=== PATIENT | female | born 1985 | race Caucasian/White ===

== ENCOUNTER 2020-09-18 15:37 | Inpatient (IN) ==
[2020-09-18] MEDS ORDERED: LIDOCAINE 1% 20 ML VIAL SQ ONE (15:38)
[2020-09-18] MEDS ORDERED: KETOROLAC 60 MG/2 ML VIAL IM ONE (16:48)
[2020-09-18 16:55] LABS: Hematocrit 39.1 % (36.0-48.0); Hemoglobin 13.4 g/dL (12.0-15.0); Mean Cell Volume 87.5 fL (80.0-100.0); Mean Corpuscular HGB Conc 34.3 g/dL (31.0-36.0); Mean Platelet Volume 10.8 fL (7.4-10.4); Platelet Count 197 K/mcL (140-440); RBC 4.47 M/mcL (4.00-5.20); Red Cell Distribution Width 12.9 % (11.5-14.5); WBC 8.1 K/mcL (4.5-11.0)
[2020-09-18 17:22] LABS: Eosinophils % (Manual) 5 % (0-7); Lymphocytes % 43 % (15-49); Monocytes % (Manual) 10 % (1-12); Platelet Estimate NORMAL (Normal); RBC Morphology NORMAL (Normal); Segmented Neutrophils % 42 % (38-78)
--- NOTE | 2020-09-18 18:01 | Emergency Department Note ---
Extremity Problem HPI General Chief complaint: Extremity Problem,Nontraumatic Stated complaint: Left knee issue Time Seen by Provider: 09/18/20 16:01 Source: patient and family Mode of arrival: ambulatory Limitations: no limitations History of Present Illness HPI Narrative: Is a 34-year-old female patient who presents with left knee pain and swelling x24 hours status post left ACL repair complicated by flexion con tracture and sepsis. Patient had her initial procedure with Dr. Juares at [facility]. She developed a significant flexion contracture and underwent 2 additional arthroscopies for lysis of adhesion. She continued to have symptomatic left knee and was seen by [facility] and underwent a knee meniscectomy which she shortly after developed sepsis. She was admitted to ICU for 26 days. The identified bug was Serratia marcescens. Unfortunately, her ICU course was complicated by severe anaphylactic reaction to multiple antibiotics. She now has an infectious disease physician in [place], Dr. Baeza, at [facility] infectious [facility] ([phone]). She reports that approximately 2 weeks ago she developed pain and swelling over the pes anserinus of the left lower extremity. Shortly after that she developed cellulitis that extended down to the foot. She was seen at [facility] and placed on a course of doxycycline. She states that this did not c lear her infection so she went to see a chiropractor who gave her IV silver injections in a localized silver injection to the pes anserine us. She states that her symptoms improved almost immediately after that with resolving cellulitis, but as of last night when she was out taking care of horses she was having ambulatory dysfunction secondary to left knee pain. She states that it throbs. She has tried ibuprofen which is taken the edge off. She is also noticing increasing swelling again to her pes anserinus area. She denies fever/chills/sweats. She has reached out to her infectious disease doctor in [place] and they recommended she be seen in the ER for evaluation. Related Data Allergies Allergy/AdvReac Type Severity Reaction Status Date / Time ceftriaxone [From Rocephin] Allergy Verified 09/18/20 15:43 codeine Allergy Verified 09/18/20 15:43 Ertapenem Allergy Verified 09/18/20 15:43 moxifloxacin [From Avelox] Allergy Verified 09/18/20 15:43 mupirocin [From Bactroban] Allergy Verified 09/18/20 15:43 Penicillins Allergy Verified 09/18/20 15:43 sulfamethoxazole Allergy Verified 09/18/20 15:43 [From Bactrim] trimethoprim [From Bactrim] Allergy Verified 09/18/20 15:43 vancomycin Allergy Verified 09/18/20 15:43 Review of Systems ROS ROS Narrative: Narrative: All systems ED: reviewed and negative except as stated. PFSH Narrative Patient History Narrative: Narrative: Social History Smoking Status: Never smoker Exam Narrative Narrative: General: AOx3, NAD, nontoxic appearing. Pleasant and conversant. HEENT: PERRLA, EOMI, normocephalic. Moist mucous membranes. Normal facies and normal dentition. Respiratory: No respiratory distress. Unlabored breathing. Heart: Regular rate and rhythm, no murmurs/clicks/rubs. Extremities: Warm and well perfused. No edema. DP 2+ bilaterally. No venous stasis. Left knee is warm to the touch. There is no significant joint effusion. No patellar ballottement. The left pes anserinus is swollen, warm to the touch, and erythematous. There is localized soft tissue swelling but no clear pocket of fluctuance. Is not indurated. It is tender to palpation. There is no extending erythema. Neuro: No focal deficits. Cranial nerves II-XII normal. Skin: Warm dry, no rashes or lesions, no cyanosis. Psych: Normal mood and affect Heme/Lymph: No abnormal bruising General Limitations: no limitations Course Course Course Narrative: 34-year-old female with history of septic left knee presents with acute onset left knee pain and erythema Reevaluation(s) Reevaluation #1: Will query for septic OA with CBC, sed rate and CRP Knee aspiration and then fluid for culture, Gram stain and cell count Once results are back we will contact her infectious disease doctor and obtain recommendations for antibiotic therapies. In addition, will plan to call o rthopedics should her cell count result high for potential washout. Reevaluation #2: Fluid cell counts of synovial fluid come back with 82% neutrophils and 43,000 PMNs. I discussed the case with Dr. Joe who agrees that the patient will likely need a knee arthroscopy for washout. Reevaluation #3: Call placed to [facility] infectious disease in [facility] where she is currently a patient of Dr. Griffin. I spoke with the on-call infectious disease physician, Dr. Hernandez ([phone]). She states they have not seen the patient since February 2019 but she confirmed that Serratia was the organism cultured. Given her many allergies to medications and uncertainty as to which of these she had a true reaction to, she recommends avoiding her listed allergies and treating for staph with daptomycin. Should you need to add coverage for gram negatives she recommends aztreonam. Vital Signs Vital signs: Vital Signs Temperature 98.1 F 09/18/20 15:37 Pulse Rate 77 09/18/20 15:37 Respiratory Rate 16 09/18/20 15:37 Blood Pressure 110/63 09/18/20 15:37 Pulse Oximetry (%) 99 09/18/20 15:37 Temperature 98.1 F 09/18/20 15:37 Pulse Rate 62 09/18/20 20:31 Respiratory Rate 16 09/18/20 15:37 Blood Pressure 115/71 09/18/20 20:31 Pulse Oximetry (%) 100 09/18/20 20:31 MDM MDM Narrative Medical decision making narrative: Septic osteoarthritis of the left knee I have spoken with Dr. Joe who will take the patient to surgery tomorrow for an arthroscopy I&D. He would like an MRI of the knee in the morning to rule out abscess. He would also like a 2 view x-ray of the knee which I have ordered. Given her multitude of allergies he has asked the hospitalist service to admit. I have spoken with Dr. Del Angel and he has accepted the patient for admission. Lab Data Result diagrams: 09/18/20 16:22 Labs: Lab Results 09/18/20 09/18/20 09/18/20 Range/Units 16:22 16:22 16:22 WBC 8.1 (4.5-11.0) K/mcL RBC 4.47 (4.00-5.20) M/mcL Hgb 13.4 (12.0-15.0) g/dL Hct 39.1 (36.0-48.0) % MCV 87.5 (80.0-100.0) fL MCH 30.0 (26.0-34.0) pg MCHC 34.3 (31.0-36.0) g/dL RDW 12.9 (11.5-14.5) % Plt Count 197 (140-440) K/mcL MPV 10.8 H (7.4-10.4) fL Seg Neutrophils % 42 (38-78) % Lymphocytes % 43 (15-49) % Monocytes % (Manual) 10 (1-12) % Eosinophils % (Manual) 5 (0-7) % Platelet Estimate Normal (Normal) RBC Morphology Normal (Normal) ESR 8 (0-20) mm/hr C-Reactive Protein 1.80 H (0.03-0.80) mg/dL Fluid Source Fluid Color Fluid Appearance Fluid RBC /cumm Fluid Tot Cell Count Fluid Nucleated Cells /cumm Fluid Neutrophils % Fluid Lymphocytes % Fluid Monocytes % Fluid Eosinophils % Fluid Basophils % Fluid Crystals (None Seen) Synovial Source Synovial Color Synovial Appearance Synovial Tot Cell Ct Synovial Nuc Cells /cumm Synovial Neutrophils (0-25) % Synovial Lymphocytes % Synovial Other Cells % Synovial Total Protein gm/dL Synovial Uric Acid (0.0-6.0) mg/dL 09/18/20 09/18/20 Range/Units 18:45 18:46 WBC (4.5-11.0) K/mcL RBC (4.00-5.20) M/mcL Hgb (12.0-15.0) g/dL Hct (36.0-48.0) % MCV (80.0-100.0) fL MCH (26.0-34.0) pg MCHC (31.0-36.0) g/dL RDW (11.5-14.5) % Plt Count (140-440) K/mcL MPV (7.4-10.4) fL Seg Neutrophils % (38-78) % Lymphocytes % (15-49) % Monocytes % (Manual) (1-12) % Eosinophils % (Manual) (0-7) % Platelet Estimate (Normal) RBC Morphology (Normal) ESR (0-20) mm/hr C-Reactive Protein (0.03-0.80) mg/dL Fluid Source Fluid Color Red Fluid Appearance Hazy Fluid RBC <50,000 /cumm Fluid Tot Cell Count 100 Fluid Nucleated Cells 18 /cumm Fluid Neutrophils 68 % Fluid Lymphocytes 17 % Fluid Monocytes 11 % Fluid Eosinophils 3 % Fluid Basophils 1 % Fluid Crystals None seen (None Seen) Synovial Source Left knee Synovial Color Yellow Synovial Appearance Turbid Synovial Tot Cell Ct 100 Synovial Nuc Cells 80930 /cumm Synovial Neutrophils 82 H (0-25) % Synovial Lymphocytes 13 % Synovial Other Cells 5 % Synovial Total Protein 3.5 gm/dL Synovial Uric Acid 1.7 (0.0-6.0) mg/dL Discharge Plan Patient/Caregiver Discharge Instructions Pt seen by [employer]/PA only: Yes Patient Disposition: Xfer As Inpt ([facility]) Follow up with: Sepideh Pires PA-C [Primary Care Provider] -
--- NOTE | 2020-09-18 18:39 | XRay Report ---
INDICATION: for knee joint aspiration TECHNIQUE: Informed consent was obtained. Rediscussed the procedure as well as potential risks and complications including risk of hemorrhage and infection. Routine ChloraPrep skin cleansing. 1% lidocaine injected subcutaneously and deep. A medial approach was used. An 18-gauge straight needle was placed within the left knee joint space. 10 mL synovial fluid was removed. This fluid appeared somewhat cloudy. This was placed in a specimen container and delivered to the emergency room. There is an area of erythema and swelling overlying the anteromedial tibia. An 18-gauge straight needle was utilized. Aspiration of a small amount of bloody fluid performed. This was also placed in a specimen vial and delivered to the emergency room. 13 seconds fluoroscopy utilized. A single spot film was obtained IMPRESSION: 1. Percutaneous aspiration of the left knee joint. 10 mL synovial fluid was removed 2. Aspiration of an area of erythema and soft tissue swelling overlying the anteromedial left tibia. A small amount of bloody fluid was removed Interpreted and Authenticated by: Faizan Corona 09/18/20
[2020-09-18 19:31] LABS: Crystals,Body Fluid None Seen (None Seen)
[2020-09-18 20:01] LABS: Appearance,Synovial Fluid Turbid; Color,Synovial Fluid Yellow; Lymphocytes,Synovial Fluid 13 %; Neutrophils,Synovial Fluid 82 % (0-25); Nucleated Cells,Synovial Fld 43193 /cumm; Other Cells,Synovial Fluid 5 %
[2020-09-18 20:06] LABS: Uric Acid,Synovial Fluid 1.7 mg/dL (0.0-6.0)
[2020-09-18 20:06] LABS: Appearance, Body Fluid Hazy; Color, Body Fluid Red; Nucleated Cells,Body Fld 18 /cumm; RBC, Body Fluid <50,000 /cumm; Total Cell Count Body Fld 100
--- NOTE | 2020-09-18 21:52 | Internal Med History&Physical ---
HPI History of Present Illness Patient information: Note initiated : 09/18/20 at 9:50 pm Service Date, if different from initiated Date: [] Patient: Snow Hampton a 34 y/o F admitted on for Left knee issue. Chief Complaint: [] History of present illness: Ms. Hampton is a 34 year old F Who presents the ED with right knee pain and swelling. She has had a complicated surgery since an ACL repair in 2019 which resulted infections and washouts and subsequent ICU stay down in [place]. See your provider's note. Recently she was out take care of her horses and she came back and her not knee was increasingly red and swollen. No fevers chills. In the ED she did not have any fevers a white blood cell count that was elevated per the patient last time she went septic she did not have any inflammatory markers as well. Case discussed with infectious disease ID in [place] as well as Dr. Joe orthopedic surgery. Patient will likely need a washout. She has severe allergies to many. Antibiotics. ID physician recommended daptomycin and aztreonam if needed for gram-negative. Review of Systems: Pertinent positives as above. Remaining 10 point review of system reviewed negative denies headache/fever/chills/nausea/vomiting/chest or abdominal gavin n/cough/dyspnea/diarrhea. Otherwise see above. MEDS/ALLERGIES Home Medications and Allergies Allergies Allergy/AdvReac Type Severity Reaction Status Date / Time ceftriaxone [From Rocephin] Allergy Verified 09/18/20 15:43 codeine Allergy Verified 09/18/20 15:43 Ertapenem Allergy Verified 09/18/20 15:43 moxifloxacin [From Avelox] Allergy Verified 09/18/20 15:43 mupirocin [From Bactroban] Allergy Verified 09/18/20 15:43 Penicillins Allergy Verified 09/18/20 15:43 sulfamethoxazole Allergy Verified 09/18/20 15:43 [From Bactrim] trimethoprim [From Bactrim] Allergy Verified 09/18/20 15:43 vancomycin Allergy Verified 09/18/20 15:43 EXAM Constitutional Vitals: Temp Pulse Resp BP Pulse Ox 98.1 F 62 16 115/71 100 09/18/20 15:37 09/18/20 20:31 09/18/20 15:37 09/18/20 20:31 09/18/20 20:31 Exam: General: Alert, Awake, No acute Distress Eyes/N/T: EOMI, PERRL, MM Head/Neck: neck supple, normocephalic atraumatic CV: RRR, No murmurs, normal s1/s2 Pulm: Clear b/l, no wheezing/rhonchi/rales Abd: soft, nontender, +BS x4 Ext: no clubbing/cyanosis. LEft knee red/tender Neuro: Alert, no focal deficits, moves all extremities, CN 2-12 grossly intact, symmetrical strength b/l upper/lower, sensations intact b/l upper/lower Skin: warm/dry DATA Data Completed and Pending Labs: Labs from last 24 hours 09/18/20 09/18/20 09/18/20 18:46 18:45 16:22 WBC RBC Hgb Hct MCV MCH MCHC RDW Plt Count MPV Seg Neutrophils % Lymphocytes % Monocytes % (Manual) Eosinophils % (Manual) Platelet Estimate RBC Morphology ESR C-Reactive Protein 1.80 H Fluid Source Fluid Color Red Fluid Appearance Hazy Fluid RBC <50,000 Fluid Tot Cell Count 100 Fluid Nucleated Cells 18 Fluid Neutrophils 68 Fluid Lymphocytes 17 Fluid Monocytes 11 Fluid Eosinophils 3 Fluid Basophils 1 Fluid Crystals None seen Synovial Source Left knee Synovial Color Yellow Synovial Appearance Turbid Synovial Tot Cell Ct 100 Synovial Nuc Cells 84907 Synovial Neutrophils 82 H Synovial Lymphocytes 13 Synovial Other Cells 5 Synovial Total Protein 3.5 Synovial Uric Acid 1.7 09/18/20 09/18/20 16:22 16:22 WBC 8.1 RBC 4.47 Hgb 13.4 Hct 39.1 MCV 87.5 MCH 30.0 MCHC 34.3 RDW 12.9 Plt Count 197 MPV 10.8 H Seg Neutrophils % 42 Lymphocytes % 43 Monocytes % (Manual) 10 Eosinophils % (Manual) 5 Platelet Estimate Normal RBC Morphology Normal ESR 8 C-Reactive Protein Fluid Source Fluid Color Fluid Appearance Fluid RBC Fluid Tot Cell Count Fluid Nucleated Cells Fluid Neutrophils Fluid Lymphocytes Fluid Monocytes Fluid Eosinophils Fluid Basophils Fluid Crystals Synovial Source Synovial Color Synovial Appearance Synovial Tot Cell Ct Synovial Nuc Cells Synovial Neutrophils Synovial Lymphocytes Synovial Other Cells Synovial Total Protein Synovial Uric Acid Preliminary micro results at discharge 09/18/20 19:44 Gram Stain - Preliminary Aspirate - Knee 09/18/20 19:27 Gram Stain - Preliminary Aspirate - Left Leg A/P Narrative A/P Narrative: A: *Left septic knee (complicated history with multiple infections and washouts): -Arthrocentesis (09/18) *Depression: P: -Case discussed with ID physician in [place] and recommended daptomycin given the many allergies listed. Aztreonam if needed for gram-negative coverage -pending cx's -Dr Joe for orthopedic surgery -MRI in the morning per Ortho -pt would like to establish with DR. Garcia -ppx: RLE SCD / ambulation. post-op per ortho Time Spent With Patient Time: Total time spent is greater than 50% in coordination of care (as documented) at patient's floor/unit and/or counseling patient:
[2020-09-19] MEDS: CITALOPRAM 20 MG TABLET PO SCH ×2 (01:18→20:16)
[2020-09-19] MEDS ORDERED: POTASSIUM CHLORIDE 40 MEQ in DEXTROSE 5% IN WATER 500 ML IV PRN (02:57)
[2020-09-19] MEDS ORDERED: MAGNESIUM SULFATE 2 GM/50 ML BAG IV PRN (02:57)
[2020-09-19] MEDS ORDERED: POTASSIUM CHLORIDE 20 MEQ TABLET PO PRN ×2 (02:57)
[2020-09-19] MEDS ORDERED: HYDROcodone/APAP 5/325MG TABLET PO PRN (02:57)
[2020-09-19] MEDS ORDERED: SENNOSIDES 1 TABLET PO PRN (02:57)
[2020-09-19] MEDS ORDERED: POLYETHYLENE GLYCOL 3350 17 GM PACKET PO PRN (02:57)
[2020-09-19] MEDS ORDERED: ONDANSETRON 4 MG/2 ML VIAL IV PRN (02:57)
[2020-09-19] MEDS: ACETAMINOPHEN 325 MG TABLET PO PRN ×2 (03:12→21:54)
[2020-09-19] MEDS ORDERED: ACETAMINOPHEN 325 MG TABLET PO ONE (03:13)
[2020-09-19] MEDS: DAPTOmycin 500 MG VIAL IV SCH ×2 (04:07→17:33)
[2020-09-19] MEDS: 0.9 % SODIUM CHLORIDE 10 ML SYRINGE IV SCH ×6 (04:08→20:27)
[2020-09-19 04:17] LABS: Hemoglobin 12.8 g/dL (12.0-15.0); Mean Corpuscular HGB Conc 33.7 g/dL (31.0-36.0); Platelet Count 185 K/mcL (140-440); RBC 4.32 M/mcL (4.00-5.20); Red Cell Distribution Width 12.9 % (11.5-14.5); WBC 6.4 K/mcL (4.5-11.0)
[2020-09-19 04:37] LABS: ALT/SGPT 19 U/L (<40); AST/SGOT 18 U/L (<32); Albumin/Globulin Ratio 1.5 (1.0-2.3); Alkaline Phosphatase 45 U/L (39-117); Bilirubin,Direct < 0.2 mg/dL (0-0.3); Bilirubin,Total 0.2 mg/dL (0.1-1.0); Blood Urea Nitrogen 13 mg/dL (6-20); Calcium 8.4 mg/dL (8.6-10.4); Carbon Dioxide 26 mmol/L (22-30); Chloride 103 mmol/L (96-108); Globulin 2.7 gm/dL (2.2-3.7); Glomerular Filtration Rate 82; Glucose 102 mg/dL (70-105); Lactate Dehydrogenase 173 U/L (135-225); Triglycerides 106 mg/dL (<150); Uric Acid 3.6 mg/dL (2.5-8.0)
[2020-09-19] MEDS ORDERED: DEXTROSE 5%-1/2NS W/20MEQ KCL 1,000 ML IV SCH (07:15)
[2020-09-19 07:40] LABS: Eosinophils % (Manual) 7 % (0-7); Lymphocytes % 63 % (15-49); Monocytes % (Manual) 4 % (1-12); Platelet Estimate NORMAL (Normal); RBC Morphology NORMAL (Normal); Segmented Neutrophils % 26 % (38-78)
[2020-09-19] MEDS ORDERED: GADOBENATE DIMEGLUMINE 15 ML/VIAL IV ONE (07:51)
--- NOTE | 2020-09-19 07:59 | Internal Med Progress Note ---
SUBJECTIVE Subjective Patient information: Note initiated : 09/19/20 at 7:58 am Service Date, if different from initiated Date: [] Patient: Snow Hampton a 34 y/o F admitted on 09/18/20 for Left knee issue. Chief Complaint: [] Interval history: History of present illness: Ms. Hampton is a 34 year old F Who presents the ED with right knee pain and swelling. She has had a complicated surgery since an ACL repair in 2019 which resulted infections and w ashouts and subsequent ICU stay down in [place]. See your provider's note. Recently she was out take care of her horses and she came back and her not knee was increasingly red and swollen. No fevers chills. In the ED she did not have any fevers a white blood cell count that was elevated per the patient last time she went septic she did not have any inflammatory markers as well. Case discussed with infectious disease ID in [place] as well as Dr. Joe orthopedic surgery. Patient will likely need a washout. She has severe allergies to many. Antibiotics. ID physician recommended daptomycin and aztreonam if needed for gram-negative. 09/19 Poor sleep but otherwise no complaints. Awaiting MRI. Review of Systems: denies headache/fever/chills/nausea/vomiting/chest or abdominal pain/cough/d yspnea/diarrhea. Otherwise see above. Constitutional Vitals: Vital Signs Temp Pulse Resp BP Pulse Ox 98.1 F 60 16 91/55 99 09/19/20 03:41 09/19/20 03:41 09/19/20 03:41 09/19/20 03:41 09/19/20 03:41 Period Temp Pulse Resp BP Sys/Waldron Pulse Ox Last 24 Hr 98.1 F-98.2 F 57-77 16-16 91-134/51-88 97-100 Intake and Output 09/18/20 09/19/20 09/19/20 21:59 05:59 13:59 Intake Total 300 Balance 300 Weight 63.503 kg 66.678 kg Intake & Output: Intake & Output 09/18/20 09/19/20 09/19/20 21:59 05:59 13:59 Intake Total 300 Balance 300 Weight 63.503 kg 66.678 kg Intake: Oral 300 Exam: General: Alert, Awake, No acute Distress Eyes/N/T: EOMI, Head/Neck: neck supple, CV: RRR, No murmurs, Pulm: Clear b/l, no wheezing/rhonchi/rales Abd: soft, nontender, +BS x4 Ext: no clubbing/cyanosis. LEft knee red/tender Neuro: Alert, no focal deficits, moves all extremities, Skin: warm/dry OBJ DATA Labs CBC & Chem 7: 09/19/20 03:21 09/19/20 03:21 Labs: Abnormal Lab Results 09/19/20 09/19/20 09/19/20 03:21 03:21 03:21 MPV 11.0 H Seg Neutrophils % 26 L Lymphocytes % 63 H Calcium 8.4 L C-Reactive Protein 2.90 H Synovial Neutrophils 09/18/20 09/18/20 09/18/20 18:45 16:22 16:22 MPV 10.8 H Seg Neutrophils % Lymphocytes % Calcium C-Reactive Protein 1.80 H Synovial Neutrophils 82 H Meds: Medications Acetaminophen (Acetaminophen 325 Mg Tablet) 650 mg PO Q6HP PRN PRN Reason: PAIN/FEVER > 101 Last Admin: 09/19/20 03:12 Dose: 650 mg Documented by: Hydrocodone Bitart/Acetaminophen (Hydrocodone/Apap 5/325mg Tablet) 1 tab PO Q4HP PRN PRN Reason: PAIN LEVEL 3-6 Citalopram Hydrobromide (Citalopram 20 Mg Tablet) 30 mg PO HS JOAQUIN Last Admin: 09/19/20 01:18 Dose: 30 mg Documented by: Daptomycin (Daptomycin 500 Mg Vial) 380 mg 6 mg/kg (380 mg) IV Q24H JOAQUIN; Protocol Last Admin: 09/19/20 04:07 Dose: 380 mg Documented by: Docusate Sodium (Docusate Sodium 100 Mg Capsule) 100 mg PO BID [facility] Potassium Chloride 40 meq/ (Dextrose) 520 mls @ 130 mls/hr IV UD PRN PRN Reason: Potassium < 3 Magnesium Sulfate (Magnesium Sulfate) 2 gm in 50 mls @ 50 mls/hr IV UD PRN PRN Reason: Magnesium </= 1.6 Potassium Chloride/Dextrose/Sod Cl (Dextrose 5%-1/2ns W/20meq Kcl) 1,000 mls @ 100 mls/hr IV .Q10H JOAQUIN Morphine Sulfate (Morphine 4 Mg/Ml Vial) 0 mg IV Q3HP PRN PRN Reason: Pain Ondansetron HCl (Ondansetron 4 Mg/2 Ml Vial) 4 mg IV Q4HP PRN PRN Reason: Nausea And Vomiting Polyethylene Glycol (Polyethylene Glycol 3350 17 Gm Packet) 17 gm PO DAILYP PRN PRN Reason: Constipation Potassium Chloride (Potassium Chloride 20 Meq Tablet) 40 meq PO UD PRN PRN Reason: Potssium is 3-3.5 Potassium Chloride (Potassium Chloride 20 Meq Tablet) 40 meq PO UD PRN PRN Reason: Potassium < 3 Senna (Sennosides 1 Tablet) 2 tab PO DAILYP PRN PRN Reason: Constipation Sodium Chloride (0.9 % Sodium Chloride 10 Ml Syringe) 10 ml IV Q8 [facility] Last Admin: 09/19/20 04:35 Dose: Not Given Documented by: A/P Narrative A/P Narrative: A: *Left septic knee (complicated history with multiple infections and washouts): -Arthrocentesis (09/18) *Depression: P: -Case discussed with ID physician in [place] and recommended daptomycin given the many allergies listed. Aztreonam if needed for gram-negative coverage -pending cx's -Dr Joe for orthopedic surgery -MRI per Ortho -pt would like to establish with Dr.. Garcia -ppx: RLE SCD / ambulation. post-op per ortho Time Spent With Patient Time: Total time spent is greater than 50% in coordination of care (as documented) at patient's floor/unit and/or counseling patient: QUALITY VTE Deep Vein Thrombosis/Pulmonary Embolism Present on Admission: No
--- NOTE | 2020-09-19 08:35 | XRay Report ---
INDICATION: a/p lateral- knee pain, infection TECHNIQUE: AP, oblique, lateral left knee COMPARISON: None FINDINGS: Skeletal: Previous left anterior cruciate ligament repair. Degenerative joint disease with mild narrowing of the left patellofemoral joint. No acute fracture. No cortical destruction. No plain film evidence for bone infection Joint spaces: Narrowing of the patellofemoral joint consistent with degenerative joint disease Suprapatellar recess, periarticular soft tissues: Findings consistent with small suprapatellar joint effusion IMPRESSION: 1. Previous anterior cruciate ligament repair 2. Findings consistent with small suprapatellar joint effusion 3. Mild degenerative narrowing of the patellofemoral joint 4. No cortical destruction or plain film evidence for osteomyelitis Interpreted and Authenticated by: Faizan Corona 09/19/20
--- NOTE | 2020-09-19 08:36 | Magnetic Resonance Report ---
INDICATION: R/o Ostso vs abcess. History of anterior cruciate ligament repair in 2019. Postoperative course was complicated by infection and persistent pain COMPARISON: Plain film examination dated 09/19/2020 TECHNIQUE: Pre and postcontrast knee MRI scan. 15 mL MultiHance injected. Sagittal T1 FSE, T2 FS FRFSE, PD FS FSE. Coronal T2 FS FRFSE, PD FS FSE. Axial T2 FS FRFSE. FINDINGS: Medial collateral ligament complex:No partial or full-thickness tear. No fluid or edema. Superficial and deep components are intact. Normal meniscal femoral fibers and meniscotibial fibers. Fibular collateral ligament, biceps femoris tendon, iliotibial band:Negative. No partial or full-thickness tear Popliteus tendon and popliteofibular ligament, posterolateral corner:Normal. No posterolateral corner injury. Meniscal root attachment:Normal. Medial and lateral compartment articular cartilage:No full-thickness cartilage defect Bone marrow signal: There is bone marrow edema within the proximal tibia. This is a nonspecific finding in a postoperative patient. There is contrast enhancement within the proximal tibia. Osteomyelitis is not excluded although overlying cortex appears intact. Medial meniscus:Posterior horn of the medial meniscus is abnormal with truncation and mild signal. Signal communicated to the inferior articular surface. Clinical correlation is necessary for history of partial meniscectomy. In the absence of surgical history this appearance is consistent with a tear. Lateral meniscus:Normal anterior horn, body, posterior horn. No lateral meniscal tear. Anterior cruciate ligament:Previous anterior cruciate ligament replacement. There is susceptibility related to femoral and tibial endobuttons. The replaced tendon is somewhat difficult to evaluate but appears to be intact without recurrent tear. Posterior cruciate ligament:Negative Proximal tibiofibular joint:Negative. No focal fluid collection Popliteal hiatus, superior and inferior popliteal meniscal fascicles:Negative. Quadriceps tendon: Negative. No partial or full-thickness tear. No focal signal abnormality Patella ligament:Negative. No partial or full-thickness tear. No signal abnormality. No evidence for jumper's knee Joint fluid:There is a small joint effusion. This appears homogeneous without gas bubbles or loose body. There is generalized synovial enhancement which is nonspecific. No focal synovial mass. Synovial enhancement is smooth and homogeneous Hoffa's fat pad:Normal Periarticular soft tissues:Popliteal space is negative. No significant popliteal cyst. No prepatellar soft tissue fluid collection. There is a small fluid collection with mural and surrounding soft tissue enhancement. This measures 15 x 8 x 16 mm. This may be a small abscess. This is contiguous with the tibial endobutton. Patellar position and morphology:Patella is tilted laterally. Tibial tubercle to trochlear groove measures 15 mm. This is at the upper limits of normal and may predispose to patellar subluxation Patella cartilage:5 mm abnormality in the patellar cartilage just lateral to midline. Appearance is consistent with chondromalacia Trochlear cartilage:Negative. No full-thickness cartilage defect. Normal tibial tubercle to the trochlear groove Medial retinaculum and medial patellofemoral ligament:MPFL is intact without tear Lateral retinaculum: Negative IMPRESSION: 1. Previous anterior cruciate ligament surgery. Replaced ligament appears intact 2. Abnormal posterior horn medial meniscus consistent with tear. Clinical correlation for previous partial meniscectomy recommended 3. Bone marrow edema and enhancement within the proximal tibia. No cortical destruction. Findings are nonspecific but osteomyelitis is possible 4. Small joint effusion with generalized homogeneous and thin synovial enhancement 5. Small soft tissue fluid collection which is adjacent to the tibial endobutton. Small abscess is possible 6. Borderline abnormal TTTG 7. Chondromalacia patella Interpreted and Authenticated by: Faizan Corona 09/19/20
--- NOTE | 2020-09-19 10:01 | Consultation ---
DATE OF CONSULTATION: 09/19/2020 DATE OF CONSULTATION: 09/19/2020 REASON FOR CONSULTATION: Left knee septic arthritis. CONSULTING PROVIDER: Jessie. ER PROVIDER: Renetta. HISTORY OF PRESENT ILLNESS: The patient is a 34-year-old female, who has quite extensive history of issues with her left knee. She initially underwent an ACL reconstruction with meniscal repair with subsequent manipulations for flexion contractures in [address] Juares. After that, she had continued pain, and in July or August of this past year, a repeat MRI was completed, demonstrating a meniscus tear with recommendation for debridement. However, at that time, she sought a second opinion in [place] by Dr. Bledsoe with whom she underwent an arthroscopy with meniscal debridement. Appears to have been doing well until approximately 2 weeks after the surgery. She reports that one suture had been left in place and had to be dug out during her clinic visit and subsequently developed an infection. This was around 02/04/2020. She underwent irrigation and debridement at that time with multiple multiple times into February, March timeframe. She had significant allergic reaction to some of the antibiotics, which she had a PICC line for and subsequently was transferred down to [place] where she was in the ICU for several days as well. Since that time, she has had on and off again pain. She has tried to contact Dr. Bledsoe's office on several occasions; however, typically deferred to her primary care and most recently was being treated for a cellulitis over the anterior aspect of the knee with doxycycline as Dr. Bledsoe's office could not get her in at that time. She also has pictures, which demonstrate what appears to be a suture abscess or an abscess after the last irrigation and debridement, which was treated with antibiotics again. Again, this has been over the course of the last 6-7 months and thus she presented to the ER last night here for increasing pain and difficulty with ambulation. She was admitted after a joint aspiration demonstrated greater than 43,000 white cells with greater than 85% neutrophils. The infectious disease in [place] was contacted and recommended aztreonam and daptomycin for antibiotic coverage. Of note, she has been also in treatment in [place] by a chiropractor with ozone injections, which has been injected in her knee as well as over the pes tendons. Has also been receiving IV injections of silver and B12 per patient. PAST MEDICAL HISTORY: None reported. PAST SURGICAL HISTORY: As noted above. ALLERGIES: HAS MULTIPLE ALLERGIES TO CEFTRIAXONE, CODEINE, ERTAPENEM, MOXIFLOXACIN, MUPIROCIN, PENICILLIN, SULFA DRUGS, TRIMETHOPRIM AND VANCOMYCIN. REGULAR MEDICATIONS: None routinely. SOCIAL HISTORY: She does not use tobacco products. REVIEW OF SYSTEMS: Other than the above-mentioned, the 10-point review of systems is negative. PHYSICAL EXAMINATION: GENERAL: She is alert, oriented, answers appropriate. VITAL SIGNS: She is afebrile with a temperature of 98.2, heart rate in the 50s and 60s, blood pressure is one-teens over 60s, saturating near 100% on room air. EXTREMITIES: Examination of her left lower extremity reveals isolated pathology to the left knee. She has a mild joint effusion; however, she can flex and extend from approximately 5-10 degree flexion contracture to greater than 100 degrees flexion with no significant pain outside of her baseline. She does have significant erythema and increased tenderness with palpation over the pes anserine area as well as swelling over this area. Remainder of the foot is warm and well perfused. IMAGING: She has no imaging; however, x-rays and MRI have been ordered. LABORATORY DATA: She has a CRP that is elevated at 2.9. She has a CBC with a white count of 6.4 without a left shift, platelets 185, H and H 12.8 and 38. She had a joint aspirate, which demonstrates 43,000 white cells with 82% being neutrophils. Gram stain was negative for organisms. ASSESSMENT AND PLAN: This is a 34-year-old female with a left knee infection as well as potentially an infected graft with abscess potentially over the pes anserine area. This has been a chronic ongoing issue over the last 7-8 months, treated with multiple washouts, antibiotics and appears to not have resolved. This is now a patient of Dr. Bledsoe, which I will attempt to reach out to next week. However, in the interim, I do think this needs a formal irrigation and debridement. However, the question is why it is not resolving. My recommendation is to obtain an MRI for further evaluation, which was ordered last night; however, not completed due to availability, but supposedly being able to be completed this morning. If not, I would recommend transferring her to a facility that can obtain an MRI as I do think this needs to be washed out. The question is whether the graft and the implant needs to be removed in addition to irrigating and debriding the knee as well. I discussed all those with them today. She is on daptomycin and aztreonam per infectious disease, has been admitted by the hospitalist for now. I will keep her n.p.o. until MRI is complete and likely operative treatment later on today. CANDACE:mauro Job ID: [id number] Doc ID: [id number] Rome Joe MD [facility]
[2020-09-19] MEDS ORDERED: SCOPOLAMINE 1 PATCH PATCH TOPICAL ONE (10:22)
[2020-09-19] MEDS: DOCUSATE SODIUM 100 MG CAPSULE PO SCH ×2 (10:38→20:16)
[2020-09-19] MEDS ORDERED: DEXAMETHASONE 10 MG/ML VIAL ONE (11:00)
[2020-09-19] MEDS ORDERED: HYDROmorphone 1 MG/ML SYRINGE ONE (11:00)
[2020-09-19] MEDS ORDERED: fentaNYL 100 MCG/2 ML VIAL IV ONE (11:00)
[2020-09-19] MEDS ORDERED: MIDAZOLAM 5 MG/5 ML VIAL ONE (11:00)
[2020-09-19] MEDS ORDERED: ONDANSETRON 4 MG/2 ML VIAL ONE (11:00)
[2020-09-19] MEDS ORDERED: KETAMINE 50 MG/ML Syringe (ANEST) ONE (11:00)
[2020-09-19] MEDS ORDERED: PHENYLephrine 1 MG/10 ML SYRINGE (ANEST) ONE (11:00)
[2020-09-19] MEDS ORDERED: GLYCOPYRROLATE 0.2 MG/ML VIAL IV ONE (11:00)
[2020-09-19] MEDS ORDERED: LIDOCAINE HCL/PF 100 MG/5 ML SYRINGE IV ONE (11:00)
[2020-09-19] MEDS ORDERED: PROPOFOL 200 MG/20 ML VIAL IV ONE (11:00)
[2020-09-19] MEDS ORDERED: MAGNESIUM SULFATE 2 GM/50 ML BAG IV ONE (11:00)
[2020-09-19] MEDS ORDERED: LACTATED RINGERS 250 ML IV PRN (11:12)
[2020-09-19] MEDS ORDERED: IPRATROPIUM/ALBUTEROL 3 ML AMPUL.NEB NEB PRN (11:12)
[2020-09-19] MEDS ORDERED: fentaNYL 100 MCG/2 ML VIAL IV PRN (11:12)
[2020-09-19] MEDS ORDERED: LABETALOL 5 MG/ML ML IV PRN (11:12)
[2020-09-19] MEDS ORDERED: MEPERIDINE 50 MG/ML VIAL IM PRN (11:12)
[2020-09-19] MEDS ORDERED: PROMETHAZINE 25 MG/ML VIAL IM PRN (11:12)
[2020-09-19] MEDS ORDERED: BENZOCAINE/MENTHOL 1 LOZENGE PO PRN (11:12)
[2020-09-19] MEDS ORDERED: FLUMAZENIL 0.1 MG/ML ML IV PRN (11:12)
[2020-09-19] MEDS ORDERED: PROMETHAZINE 25 MG/ML VIAL IV PRN (11:12)
[2020-09-19] MEDS ORDERED: NALOXONE HCL 0.4 MG/ML VIAL IV PRN (11:12)
[2020-09-19] MEDS ORDERED: METOPROLOL TARTRATE 5 MG/5 ML VIAL IV PRN (11:12)
[2020-09-19] MEDS ORDERED: METHOCARBAMOL 1,000 MG/10 ML VIAL IV PRN (11:12)
[2020-09-19] MEDS ORDERED: MEPERIDINE 25 MG/ML VIAL IV PRN (11:12)
[2020-09-19] MEDS ORDERED: ACETAMINOPHEN 1,000 MG/100 ML BAG IV ONE (11:12)
[2020-09-19] MEDS ORDERED: CLINDAMYCIN 900 MG in DEXTROSE 5% IN WATER 50 ML IV ONE (11:14)
[2020-09-19] MEDS ORDERED: LORazepam 2 MG/ML VIAL IV ONE (11:15)
[2020-09-19] MEDS ORDERED: LACTATED RINGERS 1,000 ML IV SCH (11:15)
--- NOTE | 2020-09-19 12:29 | Brief Operative Note ---
Brief Operative Note Date of procedure: 09/19/20 Pre-op diagnosis: left septic knee, tibial osteomyelitis with small abscess over tibial butto Post-op diagnosis: same Procedure: left knee arthroscopic irrigation and debridement, hardware removal, removal of ACL graft Grafts/Implants: No Anesthesia: GETA Findings: purulent abscess at tibial button, intact graft, septic knee Complications: none Surgeon: Rome Joe [employer] Executive Producer: Cesar Kurtz Estimated blood loss (cc): 10 Tourniquet Time (Minutes): 65 Specimens Removed/Pathology: none sent Condition: stable Disposition: PACU
--- NOTE | 2020-09-19 13:28 | XRay Report ---
INDICATION: s/p hardware removal and graft removal, drilling TECHNIQUE: AP and lateral COMPARISON: Preoperative left knee dated 09/19/2020 FINDINGS:There are skin eugenia overlying the anteromedial left tibia. There is been interval removal of replaced left anterior cruciate artery with removal of endobuttons. There is mild intra-articular and periarticular soft tissue gas IMPRESSION: Postsurgical left knee Interpreted and Authenticated by: Faizan Corona 09/19/20
[2020-09-19] MEDS: morphine 4 MG/ML VIAL IV PRN (15:03)
[2020-09-19] MEDS: LACTATED RINGERS 1,000 ML IV SCH (15:07)
[2020-09-19] MEDS: LIDOCAINE PATCH TOPICAL SCH (16:03)
[2020-09-19] MEDS: oxyCODONE/APAP 10/325MG TABLET PO PRN ×3 (16:40→23:59)
[2020-09-20] MEDS: LACTATED RINGERS 1,000 ML IV SCH ×2 (01:08→16:05)
[2020-09-20] MEDS: oxyCODONE/APAP 10/325MG TABLET PO PRN ×5 (04:28→21:28)
[2020-09-20] MEDS: 0.9 % SODIUM CHLORIDE 10 ML SYRINGE IV SCH ×7 (05:49→22:07)
[2020-09-20] MEDS: ACETAMINOPHEN 325 MG TABLET PO PRN ×2 (07:23→16:04)
--- NOTE | 2020-09-20 07:25 | Orthopedic Progress Note ---
SUBJECTIVE Subjective Patient information: Note initiated : 09/20/20 at 7:21 am Service Date, if different from initiated Date: [] Patient: Snow Hampton 34 y/o F admitted on 09/18/20 for Left knee issue. Chief Complaint: [No new complaints overnight. Pain controlled.] Constitutional Vitals: Vital Signs Temp Pulse Resp BP Pulse Ox 98.6 F 52 L 16 85/51 99 09/20/20 07:08 09/20/20 07:08 09/20/20 07:08 09/20/20 07:08 09/20/20 07:08 Period Temp Pulse Resp BP Sys/Waldron Pulse Ox Last 24 Hr 97.3 F-99.7 F 52-76 7-17 83-124/45-83 93-100 Intake and Output 09/19/20 09/20/20 09/20/20 21:59 05:59 13:59 Intake Total 1600 1800 Output Total 450 Balance 1150 1800 Weight 146 lb 8 oz Intake & Output: Intake & Output 09/19/20 09/20/20 09/20/20 21:59 05:59 13:59 Intake Total 1600 1800 Output Total 450 Balance 1150 1800 Weight 146 lb 8 oz Intake: IV 1000 1000 Dextrose 5%-1/2Ns W/20Meq KCl 1 1000 ,000 ml @ 100 mls/hr IV .Q10H [facility] Rx#:[id number] Lactated Ringers 1,000 ml @ 75 1000 mls/hr IV .[id number] [facility] Rx#: [id number] Oral 200 800 GI Tube Flush 400 Output: Void Amount 450 Other: Urine Appearance Clear Urine Color Bright Yellow # Voids 3 Additional findings Additional findings: General: alert and oriented. appropriate -left knee: dressing removed with fair amount of drainage- no purulence noted. Drain in place. stable flexion contracture. foot warm well perfused OBJ DATA Labs CBC & Chem 7: 09/19/20 03:21 09/19/20 03:21 Labs: Abnormal Lab Results 09/19/20 09/19/20 09/19/20 03:21 03:21 03:21 MPV 11.0 H Seg Neutrophils % 26 L Lymphocytes % 63 H Calcium 8.4 L C-Reactive Protein 2.90 H Synovial Neutrophils 09/18/20 09/18/20 09/18/20 18:45 16:22 16:22 MPV 10.8 H Seg Neutrophils % Lymphocytes % Calcium C-Reactive Protein 1.80 H Synovial Neutrophils 82 H Meds: Medications Acetaminophen (Acetaminophen 325 Mg Tablet) 650 mg PO Q6HP PRN PRN Reason: PAIN/FEVER > 101 Last Admin: 09/19/20 21:54 Dose: 650 mg Documented by: Citalopram Hydrobromide (Citalopram 20 Mg Tablet) 30 mg PO HS [facility] Last Admin: 09/19/20 20:16 Dose: 30 mg Documented by: Daptomycin (Daptomycin 500 Mg Vial) 380 mg 6 mg/kg (380 mg) IV Q24H [facility]; Protocol Last Admin: 09/19/20 17:33 Dose: 380 mg Documented by: Docusate Sodium (Docusate Sodium 100 Mg Capsule) 100 mg PO BID [facility] Last Admin: 09/19/20 20:16 Dose: 100 mg Documented by: Enoxaparin Sodium (Enoxaparin 40 Mg/0.4 Ml Syringe) 40 mg SQ DAILY [facility] Potassium Chloride 40 meq/ (Dextrose) 520 mls @ 130 mls/hr IV UD PRN PRN Reason: Potassium < 3 Magnesium Sulfate (Magnesium Sulfate) 2 gm in 50 mls @ 50 mls/hr IV UD PRN PRN Reason: Magnesium </= 1.6 Lactated Ringer's (Lactated Ringers) 1,000 mls @ 75 mls/hr IV .[id number] [facility] Last Infusion: 09/20/20 04:40 Dose: Infused Documented by: Lidocaine (Lidocaine Patch) 1 patch TOPICAL DAILY@1000 [facility] Last Admin: 09/19/20 16:03 Dose: 1 patch Documented by: Morphine Sulfate (Morphine 4 Mg/Ml Vial) 0 mg IV Q3HP PRN PRN Reason: Pain Last Admin: 09/19/20 15:03 Dose: 3 mg Documented by: Ondansetron HCl (Ondansetron 4 Mg/2 Ml Vial) 4 mg IV Q4HP PRN PRN Reason: Nausea And Vomiting Oxycodone/Acetaminophen (Oxycodone/Apap 10/325mg Tablet) 1 - 2 tab PO Q4-6HP PRN; Protocol PRN Reason: Per Pain Protocol Last Admin: 09/20/20 04:28 Dose: 2 tab Documented by: Polyethylene Glycol (Polyethylene Glycol 3350 17 Gm Packet) 17 gm PO DAILYP PRN PRN Reason: Constipation Potassium Chloride (Potassium Chloride 20 Meq Tablet) 40 meq PO UD PRN PRN Reason: Potssium is 3-3.5 Potassium Chloride (Potassium Chloride 20 Meq Tablet) 40 meq PO UD PRN PRN Reason: Potassium < 3 Senna (Sennosides 1 Tablet) 2 tab PO DAILYP PRN PRN Reason: Constipation Sodium Chloride (0.9 % Sodium Chloride 10 Ml Syringe) 10 ml IV Q8 [facility] Last Admin: 09/20/20 05:49 Dose: Not Given Documented by: Sodium Chloride (0.9 % Sodium Chloride 10 Ml Syringe) 10 ml IV Q8 [facility] Last Admin: 09/20/20 05:49 Dose: 10 ml Documented by: A/P Assessment and plan (1) Septic arthritis of knee: Status: Acute Comment: POD 1 s/p left knee arthroscopic irrigation and debridement, ACL graft removal, hardware removal -- continue IV antibiotics per recommendations -----consult ID in the morning -----culture pending -- PT- 50% weight bearing, no restrictions to range of motion -- dressing changed this AM. Possible d/c the pen denisse drain in AM -- regular diet -- Prophy: IS, foot pumps, lovenox, mobilization -- Dispo: pending. Time Spent With Patient Time: Total time spent is greater than 50% in coordination of care (as documented) at patient's floor/unit and/or counseling patient:
--- NOTE | 2020-09-20 09:36 | Internal Med Progress Note ---
SUBJECTIVE Subjective Patient information: Note initiated : 09/20/20 at 9:33 am Service Date, if different from initiated Date: [] Patient: Snow Hampton a 34 y/o F admitted on 09/18/20 for Left knee issue. Chief Complaint: [] Interval history: History of present illness: Ms. Hampton is a 34 year old F Who presents the ED with right knee pain and swelling. She has had a complicated surgery since an ACL repair in 2019 which resulted infections and w ashouts and subsequent ICU stay down in [place]. See your provider's note. Recently she was out take care of her horses and she came back and her not knee was increasingly red and swollen. No fevers chills. In the ED she did not have any fevers a white blood cell count that was elevated per the patient last time she went septic she did not have any inflammatory markers as well. Case discussed with infectious disease ID in [place] as well as Dr. Joe orthopedic surgery. Patient will likely need a washout. She has severe allergies to many. Antibiotics. ID physician recommended daptomycin and aztreonam if needed for gram-negative. 09/19 Poor sleep but otherwise no complaints. Awaiting MRI. 09/20 Patient had washout with removal of hardware and graft yesterday. Awaiting cultures for final antibiotic regimen and discussion with infectious disease. Review of Systems: denies headache/fever/chills/nausea/vomiting/chest or abdominal pain/cough/dyspnea/diarrhea. Otherwise see above. Constitutional Vitals: Vital Signs Temp Pulse Resp BP Pulse Ox 98.6 F 52 L 16 85/51 99 09/20/20 07:08 09/20/20 07:08 09/20/20 07:08 09/20/20 07:08 09/20/20 07:08 Period Temp Pulse Resp BP Sys/Waldron Pulse Ox Last 24 Hr 97.3 F-99.7 F 52-76 7-17 83-124/45-83 93-100 Intake and Output 09/19/20 09/20/20 09/20/20 21:59 05:59 13:59 Intake Total 1600 1800 Output Total 450 Balance 1150 1800 Weight 66.451 kg Intake & Output: Intake & Output 09/19/20 09/20/20 09/20/20 21:59 05:59 13:59 Intake Total 1600 1800 Output Total 450 Balance 1150 1800 Weight 66.451 kg Intake: IV 1000 1000 Dextrose 5%-1/2Ns W/20Meq KCl 1 1000 ,000 ml @ 100 mls/hr IV .Q10H [facility] Rx#:[id number] Lactated Ringers 1,000 ml @ 75 1000 mls/hr IV .[id number] [facility] Rx#: [id number] Oral 200 800 GI Tube Flush 400 Output: Void Amount 450 Other: Urine Appearance Clear Urine Color Bright Yellow # Voids 3 Exam: General: Alert, Awake, No acute Distress Eyes/N/T: EOMI, Head/Neck: neck supple, CV: RRR, No murmurs, Pulm: Clear b/l, no wheezing/rhonchi/rales Abd: soft, nontender, +BS x4 Ext: no clubbing/cyanosis. LEft knee in dressings Neuro: Alert, no focal deficits, moves all extremities, Skin: warm/dry OBJ DATA Labs CBC & Chem 7: 09/19/20 03:21 09/19/20 03:21 Labs: Abnormal Lab Results 09/19/20 09/19/20 09/19/20 03:21 03:21 03:21 MPV 11.0 H Seg Neutrophils % 26 L Lymphocytes % 63 H Calcium 8.4 L C-Reactive Protein 2.90 H Synovial Neutrophils 09/18/20 09/18/20 09/18/20 18:45 16:22 16:22 MPV 10.8 H Seg Neutrophils % Lymphocytes % Calcium C-Reactive Protein 1.80 H Synovial Neutrophils 82 H Meds: Medications Acetaminophen (Acetaminophen 325 Mg Tablet) 650 mg PO Q6HP PRN PRN Reason: PAIN/FEVER > 101 Last Admin: 09/20/20 07:23 Dose: 650 mg Documented by: Citalopram Hydrobromide (Citalopram 20 Mg Tablet) 30 mg PO HS [facility] Last Admin: 09/19/20 20:16 Dose: 30 mg Documented by: Daptomycin (Daptomycin 500 Mg Vial) 380 mg 6 mg/kg (380 mg) IV Q24H [facility]; Protocol Last Admin: 09/19/20 17:33 Dose: 380 mg Documented by: Docusate Sodium (Docusate Sodium 100 Mg Capsule) 100 mg PO BID [facility] Last Admin: 09/19/20 20:16 Dose: 100 mg Documented by: Enoxaparin Sodium (Enoxaparin 40 Mg/0.4 Ml Syringe) 40 mg SQ DAILY [facility] Potassium Chloride 40 meq/ (Dextrose) 520 mls @ 130 mls/hr IV UD PRN PRN Reason: Potassium < 3 Magnesium Sulfate (Magnesium Sulfate) 2 gm in 50 mls @ 50 mls/hr IV UD PRN PRN Reason: Magnesium </= 1.6 Lactated Ringer's (Lactated Ringers) 1,000 mls @ 75 mls/hr IV .[id number] [facility] Last Infusion: 09/20/20 04:40 Dose: Infused Documented by: Lidocaine (Lidocaine Patch) 1 patch TOPICAL DAILY@1000 [facility] Last Admin: 09/19/20 16:03 Dose: 1 patch Documented by: Morphine Sulfate (Morphine 4 Mg/Ml Vial) 0 mg IV Q3HP PRN PRN Reason: Pain Last Admin: 09/19/20 15:03 Dose: 3 mg Documented by: Ondansetron HCl (Ondansetron 4 Mg/2 Ml Vial) 4 mg IV Q4HP PRN PRN Reason: Nausea And Vomiting Oxycodone/Acetaminophen (Oxycodone/Apap 10/325mg Tablet) 1 - 2 tab PO Q4-6HP PRN; Protocol PRN Reason: Per Pain Protocol Last Admin: 09/20/20 04:28 Dose: 2 tab Documented by: Polyethylene Glycol (Polyethylene Glycol 3350 17 Gm Packet) 17 gm PO DAILYP PRN PRN Reason: Constipation Potassium Chloride (Potassium Chloride 20 Meq Tablet) 40 meq PO UD PRN PRN Reason: Potssium is 3-3.5 Potassium Chloride (Potassium Chloride 20 Meq Tablet) 40 meq PO UD PRN PRN Reason: Potassium < 3 Senna (Sennosides 1 Tablet) 2 tab PO DAILYP PRN PRN Reason: Constipation Sodium Chloride (0.9 % Sodium Chloride 10 Ml Syringe) 10 ml IV Q8 [facility] Last Admin: 09/20/20 05:49 Dose: Not Given Documented by: Sodium Chloride (0.9 % Sodium Chloride 10 Ml Syringe) 10 ml IV Q8 [facility] Last Admin: 09/20/20 05:49 Dose: 10 ml Documented by: A/P Narrative A/P Narrative: A: *Left septic knee (complicated history with multiple infections and washouts): s/p washout/hardware removal/graft removal (09/19) -Arthrocentesis (09/18) *Depression: P: -Case discussed with ID physician in [place] and recommended daptomycin given the many allergies listed. Aztreonam if needed for gram-negative coverage -pending cx's -Dr Joe for orthopedic surgery -d/w with Dr. Garcia on monday, will need PICC for long-term abx -ppx: RLE SCD / ambulation. post-op per ortho Time Spent With Patient Time: Total time spent is greater than 50% in coordination of care (as documented) at patient's floor/unit and/or counseling patient: QUALITY VTE Deep Vein Thrombosis/Pulmonary Embolism Present on Admission: No
[2020-09-20] MEDS: DAPTOmycin 500 MG VIAL IV SCH (09:42)
[2020-09-20] MEDS: DOCUSATE SODIUM 100 MG CAPSULE PO SCH ×2 (09:42→21:27)
[2020-09-20] MEDS: ENOXAPARIN 40 MG/0.4 ML SYRINGE SQ SCH (09:43)
[2020-09-20] MEDS: LIDOCAINE PATCH TOPICAL SCH (09:43)
[2020-09-20] MEDS ORDERED: 0.9 % SODIUM CHLORIDE 10 ML SYRINGE IV PRN (16:27)
[2020-09-20] MEDS: CITALOPRAM 20 MG TABLET PO SCH (21:27)
[2020-09-21] MEDS: oxyCODONE/APAP 10/325MG TABLET PO PRN ×6 (01:28→21:44)
[2020-09-21] MEDS: LACTATED RINGERS 1,000 ML IV SCH ×2 (04:49→16:16)
[2020-09-21] MEDS: ACETAMINOPHEN 325 MG TABLET PO PRN ×3 (05:43→19:45)
--- NOTE | 2020-09-21 06:33 | Orthopedic Progress Note ---
SUBJECTIVE Subjective Patient information: Note initiated : 09/21/20 at 6:30 am Service Date, if different from initiated Date: [] Patient: Snow Hampton 34 y/o F admitted on 09/18/20 for Left knee issue. Chief Complaint: [No acute events overnight. pain controlled. ] Constitutional Vitals: Vital Signs Temp Pulse Resp BP Pulse Ox 98.1 F 63 15 92/46 98 09/21/20 01:32 09/21/20 01:32 09/21/20 01:32 09/21/20 01:32 09/21/20 01:32 Period Temp Pulse Resp BP Sys/Waldron Pulse Ox Last 24 Hr 98.1 F-98.6 F 52-63 15-16 85-120/46-68 98-100 Intake and Output 09/20/20 09/21/20 09/21/20 21:59 05:59 13:59 Intake Total 1080 800 Balance 1080 800 Weight 146 lb 8 oz Intake & Output: Intake & Output 09/20/20 09/21/20 09/21/20 21:59 05:59 13:59 Intake Total 1080 800 Balance 1080 800 Weight 146 lb 8 oz Intake: Oral 1080 800 Other: Percent of Meal Consumed 100% # Voids 2 Additional findings Additional findings: General: alert and oriented, appropriate left knee: dressing removed, continue to drain as expected. No erythema, the closed incisions are without drainage. Drainage is sanguinous. Baseline flexion contracture. OBJ DATA Labs CBC & Chem 7: 09/19/20 03:21 09/19/20 03:21 Labs: Abnormal Lab Results 09/19/20 09/19/20 09/19/20 03:21 03:21 03:21 MPV 11.0 H Seg Neutrophils % 26 L Lymphocytes % 63 H Calcium 8.4 L C-Reactive Protein 2.90 H Synovial Neutrophils 09/18/20 09/18/20 09/18/20 18:45 16:22 16:22 MPV 10.8 H Seg Neutrophils % Lymphocytes % Calcium C-Reactive Protein 1.80 H Synovial Neutrophils 82 H Meds: Medications Acetaminophen (Acetaminophen 325 Mg Tablet) 650 mg PO Q6HP PRN PRN Reason: PAIN/FEVER > 101 Last Admin: 09/21/20 05:43 Dose: 650 mg Documented by: Citalopram Hydrobromide (Citalopram 20 Mg Tablet) 30 mg PO HS [facility] Last Admin: 09/20/20 21:27 Dose: 30 mg Documented by: Daptomycin (Daptomycin 500 Mg Vial) 380 mg 6 mg/kg (380 mg) IV Q24H [facility]; Protocol Last Admin: 09/20/20 09:42 Dose: 380 mg Documented by: Docusate Sodium (Docusate Sodium 100 Mg Capsule) 100 mg PO BID [facility] Last Admin: 09/20/20 21:27 Dose: 100 mg Documented by: Enoxaparin Sodium (Enoxaparin 40 Mg/0.4 Ml Syringe) 40 mg SQ DAILY [facility] Last Admin: 09/20/20 09:43 Dose: 40 mg Documented by: Heparin Sodium (Porcine) (Heparin Flush 10 Units/Ml 5 Ml Syringe) 2 ml IV Q12 [facility] Last Admin: 09/20/20 21:57 Dose: Not Given Documented by: Potassium Chloride 40 meq/ (Dextrose) 520 mls @ 130 mls/hr IV UD PRN PRN Reason: Potassium < 3 Magnesium Sulfate (Magnesium Sulfate) 2 gm in 50 mls @ 50 mls/hr IV UD PRN PRN Reason: Magnesium </= 1.6 Lactated Ringer's (Lactated Ringers) 1,000 mls @ 75 mls/hr IV .[id number] [facility] Last Admin: 09/21/20 04:49 Dose: Not Given Documented by: Lidocaine (Lidocaine Patch) 1 patch TOPICAL DAILY@1000 [facility] Last Admin: 09/20/20 09:43 Dose: 1 patch Documented by: Morphine Sulfate (Morphine 4 Mg/Ml Vial) 0 mg IV Q3HP PRN PRN Reason: Pain Last Admin: 09/19/20 15:03 Dose: 3 mg Documented by: Ondansetron HCl (Ondansetron 4 Mg/2 Ml Vial) 4 mg IV Q4HP PRN PRN Reason: Nausea And Vomiting Oxycodone/Acetaminophen (Oxycodone/Apap 10/325mg Tablet) 1 - 2 tab PO Q4-6HP PRN; Protocol PRN Reason: Per Pain Protocol Last Admin: 09/21/20 05:43 Dose: 1 tab Documented by: Polyethylene Glycol (Polyethylene Glycol 3350 17 Gm Packet) 17 gm PO DAILYP PRN PRN Reason: Constipation Potassium Chloride (Potassium Chloride 20 Meq Tablet) 40 meq PO UD PRN PRN Reason: Potssium is 3-3.5 Potassium Chloride (Potassium Chloride 20 Meq Tablet) 40 meq PO UD PRN PRN Reason: Potassium < 3 Senna (Sennosides 1 Tablet) 2 tab PO DAILYP PRN PRN Reason: Constipation Sodium Chloride (0.9 % Sodium Chloride 10 Ml Syringe) 10 ml IV Q8 [facility] Last Admin: 09/20/20 21:31 Dose: 10 ml Documented by: Sodium Chloride (0.9 % Sodium Chloride 10 Ml Syringe) 10 ml IV Q8 [facility] Last Admin: 09/20/20 22:07 Dose: 10 ml Documented by: Sodium Chloride (0.9 % Sodium Chloride 10 Ml Syringe) 10 ml IV UD PRN PRN Reason: FLUSH Sodium Chloride (0.9 % Sodium Chloride 10 Ml Syringe) 10 ml IV Q12 [facility] Last Admin: 09/20/20 19:34 Dose: Not Given Documented by: A/P Assessment and plan (1) Septic arthritis of knee: Status: Acute Comment: POD 2 s/p left knee arthroscopic irrigation and debridement, ACL graft removal, hardware removal -- continue IV antibiotics per recommendations -----ID consult -----culture pending -- PT- 50% weight bearing, no restrictions to range of motion -- dressing changed this AM. [place] drain d/c -- regular diet -- Prophy: IS, foot pumps, lovenox, mobilization -- Dispo: pending. Time Spent With Patient Time: Total time spent is greater than 50% in coordination of care (as documented) at patient's floor/unit and/or counseling patient:
[2020-09-21] MEDS: DAPTOmycin 500 MG VIAL IV SCH (08:45)
[2020-09-21] MEDS: 0.9 % SODIUM CHLORIDE 10 ML SYRINGE IV SCH ×6 (08:45→23:29)
[2020-09-21] MEDS: ENOXAPARIN 40 MG/0.4 ML SYRINGE SQ SCH (08:45)
[2020-09-21] MEDS: DOCUSATE SODIUM 100 MG CAPSULE PO SCH ×2 (08:45→21:45)
--- NOTE | 2020-09-21 09:10 | Operative Note ---
DATE OF OPERATION: 09/19/2020 PREOPERATIVE DIAGNOSES: 1. Left septic knee. 2. 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 3. Left abscess over the proximal tibia. POSTOPERATIVE DIAGNOSES: 1. Left septic knee. 2. 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 Left abscess over the proximal tibia. PROCEDURE PERFORMED: 1. Arthroscopic irrigation and debridement of the left knee infection. 2. Left knee hardware removal. 3. Left knee I and D of abscess and removal of ACL graft. SURGEON: Rome Joe M.D. ACID CORRECTION HAND: Cesar Kurtz PA-C. The PA's assistance was required for the safe and efficient completion of the entire case. This provider's expertise and technical skill were required throughout the case. The PA assisted with preoperative coordination, intraoperative retraction, wound closure, dressing and splint application, as well as postoperative documentation and care coordination. ANESTHESIA: General with peripheral nerve block. INTRAVENOUS FLUIDS: 1 liter lactated Ringer's. ESTIMATED BLOOD LOSS: Minimal. TOURNIQUET TIME: 65 minutes at 250 mmHg. IMPLANTS: None. However, did remove the ACL graft as well as two buttons from an [employer]rex TightRope. ANTIBIOTICS: 900 mg clindamycin. PATHOLOGY/LAB: I did send reamings from the tibial tunnel. INTRAOPERATIVE COMPLICATIONS: None apparent. INDICATIONS FOR PROCEDURE: The patient is a 34-year-old female with a complicated history with the short version being ACL reconstruction with meniscal repair in 2019. Subsequently, had manipulation for flexion contractures. After that had repeat meniscus tear, which she sought a second opinion. Dr. Bledsoe performed a meniscal debridement which subsequently got infected, requiring multiple washouts with IV antibiotics with allergic reactions to multiple antibiotics requiring an ICU stay in [place]. She subsequently has been dealing with this on and off pain, unable to get back to the clinic up in [place] and has been followed by her primary care who has been treating her with antibiotics on and off. She subsequently presented to the emergency department here for increasing pain as well as inability to bear weight without assistive devices. Here, she was found to have edema throughout the proximal tibia as well as what appears to be an abscess over the tibial implant as well as septic knee with a white count of over 43,000 and 85% neutrophils from the knee itself. After discussion of options with her and her , my recommendation was for operative treatment to include irrigation and debridement of the knee along with removal of the implants and the graft given that it appears that the tibial tunnel was involved. I did discuss that we could try to save the tibial graft. However, I do think this is not going to be viable. After discussion, they are okay to proceed in this fashion. DESCRIPTION OF PROCEDURE: Patient was met in the preoperative area where site was verified and marked with the patient's input. She was then taken back to the operating room where she underwent successful anesthesia. Her left lower extremity was placed in a surgical thigh quezada after placing a padded tourniquet and prepped and draped in the usual sterile fashion with ChloraPrep. Surgical timeout was performed to verify patient's identity, correct procedure being performed, and correct extremity being operated on. Everybody was in agreement. Esmarch was utilized to exsanguinate the extremity only up to the calf, not throughout the knee, and tourniquet was inflated to 250 mmHg. I made a small incision over the prior incision lateral to the femur and through the IT band and isolated the button here. This was excised along with the suture. This was then irrigated and IT band was closed with a PDS suture and the skin was closed with 3-0 nylon. At this point, I made our incision directly over the medial face of the tibia where her prior incision was made as well. This was dissected down to the tibial button, which was an ABS button. There was purulent abscess right at this location. This was debrided utilizing a rongeur as well as a sharp knife. The button sutures were then removed from the location. At this point, I made our arthroscopy portals medial and lateral, which were already made horizontal in nature. Upon entering the joint, there was cloudy fluid throughout the joint. A significant amount of scar tissue throughout the anterior knee. No yohan pus, but definitely thicker cloudy synovial fluid. This was irrigated with 9 liters of saline of irrigation through the scope with performing a partial synovectomy. I also did a capsular release on the medial and lateral side as it was significantly scarred in greater than 5 to 6 mm in thickness overall. There was grade 1 chondromalacia of the medial and lateral femoral condyle as well as tibial plateau. The meniscus itself appeared to have healed. No full-thickness chondral defects. The graft itself was intact. The ACL graft was intact but excised. Once this was complete, placed a Beath pin through the tibial tunnel and intra-articular, verified position. Over the top of this, I reamed with a 7 and 8 mm reamer and then looking down to the tunnel all the soft tissue, except for anteriorly was removed. Using a curette, I curetted circumferentially around the tunnel. All the soft tissue graft were removed and this was a bony appearance of the tunnel. Once that was removed, all arthroscopic instruments were removed from the knee. I performed an irrigation with IrriSept as well and then irrigated this out with normal irrigation again. At this point, I closed the periosteum over top of the tibial tunnel as best as I could, along with a deep layer. These were all Monocryl sutures. Skin closed with 3-0 nylon. I placed a [place] drain in the medial portal of the arthroscopy site and left the lateral one open. The lateral incision was already closed at this point. The knee was then cleaned and dried. We placed a Xeroform along with fluffs and a dry dressing in order to absorb the drainage, along with Wilner wrap and a hinged knee brace locked in extension. The patient awoke from anesthesia and was transferred to PACU in stable condition. POSTOPERATIVE PLAN: The patient will be admitted back to the floor where she will continue IV antibiotics. She will have a PICC placed with ID consult on Monday. DLW:[email or web address] Job ID: [id number] Doc ID: [id number] Rome Joe MD [facility]
[2020-09-21] MEDS: LIDOCAINE PATCH TOPICAL SCH (10:07)
[2020-09-21 11:59] LABS: Basophils # (Auto) 0.02 K/mcL (0.00-0.20); Basophils % (Auto) 0.2 % (0.0-2.0); Eosinophils # (Auto) 0.16 K/mcL (0.00-0.70); Eosinophils % (Auto) 1.9 % (0.0-7.0); Hematocrit 35.3 % (36.0-48.0); Hemoglobin 11.6 g/dL (12.0-15.0); Lymphocytes # (Auto) 3.79 K/mcL (1.50-4.80); Lymphocytes % (Auto) 45.8 % (15.0-49.0); Mean Cell Volume 90.3 fL (80.0-100.0); Mean Corpuscular HGB Conc 32.9 g/dL (31.0-36.0); Mean Platelet Volume 11.2 fL (7.4-10.4); Monocytes # (Auto) 0.67 K/mcL (0.10-0.90); Monocytes % (Auto) 8.1 % (1.0-12.0); Platelet Count 161 K/mcL (140-440); RBC 3.91 M/mcL (4.00-5.20); Red Cell Distribution Width 13.2 % (11.5-14.5); WBC 8.3 K/mcL (4.5-11.0)
[2020-09-21 12:21] LABS: ALT/SGPT 38 U/L (<40); AST/SGOT 63 U/L (<32); Albumin 3.6 gm/dL (3.2-5.2); Albumin/Globulin Ratio 1.4 (1.0-2.3); Alkaline Phosphatase 44 U/L (39-117); Bilirubin,Total < 0.2 mg/dL (0.1-1.0); Blood Urea Nitrogen 12 mg/dL (6-20); Calcium 8.7 mg/dL (8.6-10.4); Carbon Dioxide 26 mmol/L (22-30); Chloride 104 mmol/L (96-108); Globulin 2.5 gm/dL (2.2-3.7); Glomerular Filtration Rate 94; Glucose 80 mg/dL (70-105)
--- NOTE | 2020-09-21 16:36 | Internal Med Progress Note ---
SUBJECTIVE Subjective Patient information: Note initiated : 09/21/20 at 4:31 pm Service Date, if different from initiated Date: [] Patient: Snow Hampton a 34 y/o F admitted on 09/18/20 for Left knee issue. Chief Complaint: [septic left knee] Interval history: History of present illness: Ms. Hampton is a 34 year old F Who presents the ED with right knee pain and swelling. She has had a complicated surgery since an ACL repair in 2019 which resulted infections and washouts and subsequent ICU stay down in [place]. See your provider's note. Recently she was out take care of her horses and she came back and her not knee was increasingly red and swollen. No fevers chills. In the ED she did not have any fevers a white blood cell count that was elevated per the patient last time she went septic she did not have any inflammatory markers as well. Case discussed with infectious disease ID in [place] as well as Dr. Joe orthopedic surgery. Patient will likely need a washout. She has severe allergies to many. Antibiotics. ID physician recommended daptomycin and aztreonam if needed for gram-negative. 09/19 Poor sleep but otherwise no complaints. Awaiting MRI. 09/20 Patient had washout with removal of hardware and graft yesterday. Awaiting cultures for final antibiotic regimen and discussion with infectious disease. 09/21: Afebrile overnight. Blood and wound cultures no growth to date. c/o 07/23 throbbing pain of the left knee radiating to the left thigh. Denies fever or chills. Denies general body weakness. Constitutional Vitals: Vital Signs Temp Pulse Resp BP Pulse Ox 37.1 C 83 18 96/48 96 09/21/20 16:00 09/21/20 16:00 09/21/20 16:00 09/21/20 16:00 09/21/20 16:00 Period Temp Pulse Resp BP Sys/Waldron Pulse Ox Last 24 Hr 36.4 C-37.1 C 60-83 15-18 91-118/46-63 96-100 Intake and Output 09/21/20 09/21/20 09/21/20 05:59 13:59 21:59 Intake Total 800 450 Balance 800 450 Weight 66.451 kg Patient Weight 09/22/20 05:59 Weight 66.451 kg Intake & Output: Intake & Output 09/21/20 09/21/20 09/21/20 05:59 13:59 21:59 Intake Total 800 450 Balance 800 450 Weight 66.451 kg Intake: Oral 800 450 Other: Meal Lunch Percent of Meal Consumed 75% Feeding Ability Independent # Voids 2 1 General appearance: cooperative and no acute distress Head Head exam: Present atraumatic and normocephalic Eye Eye exam: Present EOMI and PERRL ENT ENT exam: Present mucous membranes moist, normal exam and normal external ear exam Neck Neck exam: Present normal inspection; Absent lymphadenopathy, tenderness and thyromegaly Respiratory Respiratory exam: Absent accessory muscle use, respiratory distress and wheezes Cardiovascular Cardiovascular exam: Present normal rate and rhythm; Absent JVD GI/Abdominal GI/Abdominal exam: Present normal bowel sounds and soft; Absent organomegaly and tenderness Extremities Exam Extremities exam: Present full ROM, normal capillary refill and normal inspection; Absent tenderness Additional comments: Left knee wrapped in surgical dressing Neurological Exam Neurological exam: Present alert, CN II-XII intact and oriented X3; Absent motor sensory deficit Psychiatric Psychiatric exam: Present normal affect and normal mood; Absent anxious and depressed Skin Skin exam: Present dry and intact OBJ DATA Labs CBC & Chem 7: 09/21/20 11:03 09/21/20 11:03 Labs: Abnormal Lab Results 09/21/20 09/21/20 09/21/20 11:03 11:03 05:25 RBC 3.91 L Hgb 11.6 L Hct 35.3 L MPV 11.2 H Seg Neutrophils % Lymphocytes % Anion Gap 7.0 L Calcium AST 63 H C-Reactive Protein 1.00 H Synovial Neutrophils 09/19/20 09/19/20 09/19/20 03:21 03:21 03:21 RBC Hgb Hct MPV 11.0 H Seg Neutrophils % 26 L Lymphocytes % 63 H Anion Gap Calcium 8.4 L AST C-Reactive Protein 2.90 H Synovial Neutrophils 09/18/20 09/18/20 09/18/20 18:45 16:22 16:22 RBC Hgb Hct MPV 10.8 H Seg Neutrophils % Lymphocytes % Anion Gap Calcium AST C-Reactive Protein 1.80 H Synovial Neutrophils 82 H Meds: Medications Acetaminophen (Acetaminophen 325 Mg Tablet) 650 mg PO Q6HP PRN PRN Reason: PAIN/FEVER > 101 Last Admin: 09/21/20 13:34 Dose: 650 mg Documented by: Citalopram Hydrobromide (Citalopram 20 Mg Tablet) 30 mg PO HS [facility] Last Admin: 09/20/20 21:27 Dose: 30 mg Documented by: Daptomycin (Daptomycin 500 Mg Vial) 380 mg 6 mg/kg (380 mg) IV Q24H [facility]; Protocol Last Admin: 09/21/20 08:45 Dose: 380 mg Documented by: Docusate Sodium (Docusate Sodium 100 Mg Capsule) 100 mg PO BID [facility] Last Admin: 09/21/20 08:45 Dose: 100 mg Documented by: Enoxaparin Sodium (Enoxaparin 40 Mg/0.4 Ml Syringe) 40 mg SQ DAILY [facility] Last Admin: 09/21/20 08:45 Dose: 40 mg Documented by: Heparin Sodium (Porcine) (Heparin Flush 10 Units/Ml 5 Ml Syringe) 2 ml IV Q12 [facility] Last Admin: 09/21/20 10:51 Dose: Not Given Documented by: Potassium Chloride 40 meq/ (Dextrose) 520 mls @ 130 mls/hr IV UD PRN PRN Reason: Potassium < 3 Magnesium Sulfate (Magnesium Sulfate) 2 gm in 50 mls @ 50 mls/hr IV UD PRN PRN Reason: Magnesium </= 1.6 Lactated Ringer's (Lactated Ringers) 1,000 mls @ 75 mls/hr IV .[id number] [facility] Last Admin: 09/21/20 16:16 Dose: Not Given Documented by: Lidocaine (Lidocaine Patch) 1 patch TOPICAL DAILY@1000 [facility] Last Admin: 09/21/20 10:07 Dose: 1 patch Documented by: Morphine Sulfate (Morphine 4 Mg/Ml Vial) 0 mg IV Q3HP PRN PRN Reason: Pain Last Admin: 09/19/20 15:03 Dose: 3 mg Documented by: Ondansetron HCl (Ondansetron 4 Mg/2 Ml Vial) 4 mg IV Q4HP PRN PRN Reason: Nausea And Vomiting Oxycodone/Acetaminophen (Oxycodone/Apap 10/325mg Tablet) 1 - 2 tab PO Q4-6HP PRN; Protocol PRN Reason: Per Pain Protocol Last Admin: 09/21/20 13:42 Dose: 1 tab Documented by: Polyethylene Glycol (Polyethylene Glycol 3350 17 Gm Packet) 17 gm PO DAILYP PRN PRN Reason: Constipation Last Admin: 09/21/20 08:45 Dose: 17 gm Documented by: Potassium Chloride (Potassium Chloride 20 Meq Tablet) 40 meq PO UD PRN PRN Reason: Potssium is 3-3.5 Potassium Chloride (Potassium Chloride 20 Meq Tablet) 40 meq PO UD PRN PRN Reason: Potassium < 3 Senna (Sennosides 1 Tablet) 2 tab PO DAILYP PRN PRN Reason: Constipation Sodium Chloride (0.9 % Sodium Chloride 10 Ml Syringe) 10 ml IV Q8 [facility] Last Admin: 09/21/20 13:43 Dose: 10 ml Documented by: Sodium Chloride (0.9 % Sodium Chloride 10 Ml Syringe) 10 ml IV UD PRN PRN Reason: FLUSH Sodium Chloride (0.9 % Sodium Chloride 10 Ml Syringe) 10 ml IV Q12 [facility] Last Admin: 09/21/20 10:51 Dose: Not Given Documented by: A/P Assessment and plan (1) Septic arthritis of knee: Status: Acute Comment: POD 2 s/p left knee arthroscopic irrigation and debridement, ACL graft removal, hardware removal -- continue IV antibiotics per recommendations -----ID consult -----culture pending -- PT- 50% weight bearing, no restrictions to range of motion -- dressing changed this AM. [place] drain d/c -- regular diet -- Prophy: IS, foot pumps, lovenox, mobilization -- Dispo: pending. Narrative A/P Narrative: Assessment and Plans: 1. Left septic knee: s/p wound wash out and graft and hardware removal by Dr. Joe 09/19/20 Consult ID cesar [email or web address]. appreciated Blood and wound cultures results pending PICC line placement on 09/22 Daptomycin for now until changed by ID cbc w/ auto diff daily to trend WBC PT OT evaluation and treatment Lidocaine patch Morphine IV PRN severe pain Percocet PRN moderate pain GI ppx: not currently indicated DVT ppx: Lovenox Code status: Full Prognosis: Stable Disposition: Inpatient med surg Time Spent With Patient Time: Total time spent is greater than 50% in coordination of care (as documented) at patient's floor/unit and/or counseling patient: Total time spent with greater than 50% in coordination of care (as documented) at patient's floor/unit and/or counseling patient:: 15 - 24 minutes QUALITY VTE Deep Vein Thrombosis/Pulmonary Embolism Present on Admission: No
--- NOTE | 2020-09-21 20:00 | Infectious Disease Consult ---
HPI Data of Consult Patient: new to practice Consult date: 09/21/20 Requesting physician: Fransico Fish Primary Care Provider: Sepideh Pires Consult Narrative Chief complaint: left knee pain Reason for consult: left knee infection History of present illness: Snow is a 34-year-old woman with a complicated history regarding her left knee. She originally had left knee ACL repair 2018. She had repeat surgery in 2019. She had significant infection with hospitalization in [facility] February 06, 2020. Serratia specimens grew from wound culture. Left knee aspirate did not grow anaerobic organisms. She had multiple problems with antibiotics which led to transfer to [place]. She saw Dr. Prakash infectious disease physician who finished up prescription of Bactrim by March. She had allergic reactions to ceftriaxone ertapenem moxifloxacin and vancomycin. She has a previous history of allergy to penicillin as a child. She was subsequently rechallenged with Bactrim May 08 for left knee drainage. After 1 dose of Bactrim, she developed rash. She continued to have left knee pain. She had nerve ablative procedure July 02 followed by left knee injection by chiropractor in [place]. She received vitamin injections along with silver and ozone. She subsequently developed redness in her left knee approximately August 17. She visited her primary care provider August 19 Sepideh Pires who prescribed a weeks worth of doxycycline. No improvement with doxycycline. Last she had sudden increase in left knee pain. She was admitted in the hospital [facility] last Monday, September 18. Aspiration of the left knee fluid revealed 43,193 white cells with 82 segs 13 lymphs. She has been started on IV daptomycin. She currently rates her left knee pain at 4 out of 10. She is postop day [address] Joe for washout of left septic knee. He removed 2 buttons and ACL graft. An MRI was completed September 19 that showed enhancement of the proximal tibia with bone edema in the presence of effusion. There was a collection around one of the buttons measuring 1.5 cm x 0.8 cm x 1.6 cm. Her MRSA screen was negative but she reports that she does have a previous history of a positive MRSA screen. She also has a history of C. difficile. No current diarrhea. asked for consultation. cc:: CC: Benji Del Angel Review of Systems Review of systems: General: No acute distress. HEENT: No headaches or sore throat. No neck complaints. Pulmonary: No cough or shortness of breath. Cardiac: No history of heart murmur. GI: No abdominal pain or diarrhea. Skin no complaints of rash. Extremities: Left knee pain as above. Musculoskeletal: She does complain of left leg soreness and left back and shoulder soreness. PFSH PFSH All Active Problems (Updated 09/21/20 @ 20:00 by Rishi Garcia MD) Serratia marcescens infection (Acute) Chronic osteomyelitis of left tibia (Acute) Septic arthritis of knee (Acute) Social History (Updated 09/21/20 @ 19:50 by Rishi Garcia MD) occupation: clinical trainer other: lives in [facility]. with 2 kids. positive horse contact. MEDS/ALLERGIES Home Medications and Allergies Home Medications Medication Instructions Recorded Confirmed Type citalopram 30 mg PO QAM 09/18/20 09/18/20 History Allergies Allergy/AdvReac Type Severity Reaction Status Date / Time Penicillins Allergy Severe Difficulty Verified 09/21/20 11:25 Breathing ceftriaxone [From Rocephin] Allergy Mild Rash Verified 09/21/20 13:35 codeine Allergy Mild Rash Verified 09/21/20 13:35 Ertapenem Allergy Mild Rash Verified 09/21/20 13:35 moxifloxacin [From Avelox] Allergy Mild Hives Verified 09/21/20 13:35 mupirocin [From Bactroban] Allergy Mild Rash Verified 09/21/20 13:35 sulfamethoxazole Allergy Mild Rash Verified 09/21/20 13:35 [From Bactrim] trimethoprim [From Bactrim] Allergy Mild Rash Verified 09/21/20 13:35 vancomycin AdvReac Intermediate Flushing Verified 09/21/20 13:35 Physical Examination Vital Signs Vital signs: Temp Pulse Resp BP Pulse Ox 98.8 F 83 18 96/48 96 09/21/20 16:00 09/21/20 16:00 09/21/20 16:00 09/21/20 16:00 09/21/20 16:00 Additional Exam Additional exam: General: Nontoxic appearing. HEENT: EOMI PERRL sclera anicteric. Neck is supple. Lungs are clear bilateral without rales wheezing or rhonchi. Heart: Regular rate and rhythm without murmur. Abdomen soft benign. Extremities: Left lower extremity dressed. I did not remove the dressing. Skin without rash. Results Laboratory Findings CBC and BMP: 09/21/20 11:03 09/21/20 11:03 Abnormal lab findings: Abnormal Labs 09/18/20 09/18/20 09/18/20 16:22 16:22 18:45 RBC Hgb Hct MPV 10.8 H Seg Neutrophils % Lymphocytes % Anion Gap Calcium AST C-Reactive Protein 1.80 H Synovial Neutrophils 82 H 09/19/20 09/19/20 09/19/20 03:21 03:21 03:21 RBC Hgb Hct MPV 11.0 H Seg Neutrophils % 26 L Lymphocytes % 63 H Anion Gap Calcium 8.4 L AST C-Reactive Protein 2.90 H Synovial Neutrophils 09/21/20 09/21/20 09/21/20 05:25 11:03 11:03 RBC 3.91 L Hgb 11.6 L Hct 35.3 L MPV 11.2 H Seg Neutrophils % Lymphocytes % Anion Gap 7.0 L Calcium AST 63 H C-Reactive Protein 1.00 H Synovial Neutrophils Microbiology: Microbiology 09/20/20 10:16 Blood Blood Culture - Preliminary 09/18/20 19:27 Aspirate - Left Leg Gram Stain - Final 09/18/20 19:27 Aspirate - Left Leg Body Fluid Culture - Final 09/20/20 10:05 Blood Blood Culture - Preliminary 09/18/20 19:44 Aspirate - Knee Gram Stain - Preliminary 09/18/20 19:44 Aspirate - Knee Body Fluid Culture - Preliminary 09/19/20 09:15 Nose MRSA (PCR) - Final 09/18/20 19:27 Knee - Left Acid Fast Bacilli Smear - Final I have reviewed with micro at [facility] lab at [facility]. Synovial fluid no growth to date. Pretibial collection no growth to date. Bone culture has grown Serratia. Sensitivities pending. September 20 blood cultures - September 18 CRP 1.8 sed rate of 8 T-max September 19 99.7. AFB negative. MRSA screen negative. H&H platelet count 197 white count 8.1 42 segs 43 lymphs. Cell count on left knee aspirate 43,193 white cells 82 segs 13 lymphs. The September 19 MRI showed enhancement of the proximal medial tibia with edema and a positive left knee effusion. Fluid around one of the ACL button sites 1.5 x 0.8 x 1.6 cm. A/P Assessment and plan (1) Chronic osteomyelitis of left tibia: Status: Acute Comment: Snow is a 34-year-old woman that has a history of left knee ACL repair 2018. She had repeat left knee meniscus repair in 2019. She had subsequent development of infection in January 2020 with Serratia. She had multiple antibiotic allergic reactions in January and February that included Rocephin, Invanz, moxifloxacin, and vancomycin. She has a childhood reaction to penicillin. She subsequently developed allergy to Bactrim after single dose in April 2020. She is postop day 2 removal of ACL graft and to hardware buttons. She is currently on IV daptomycin. I have contacted micro today which has identified Serratia from tibial specimen. Pretibial collection and synovial fluid from left knee are no growth to date. Given the same organism that is identified, I suspect chronic osteomyelitis. It will be important to follow-up on final susceptibilities. Given history of allergies, I am left with either IV aztreonam or aminoglycoside. (2) Septic arthritis of knee: Status: Acute Comment: Associated infection with arthroscopic washout postop day 2. Follow-up on final cultures but likely the same. (3) Serratia marcescens infection: Status: Acute Comment: Follow-up on final sensitivities. Start aztreonam 2 g IV every [address] PICC line tomorrow. I have cautioned her to monitor for rash or diarrhea. She has a history of C. difficile in February 2020. Check weekly labs CBC CMP and CRP. Follow-up to clinic in 2 weeks. Patient does comment about muscle soreness. Check CK while on daptomycin. DC daptomycin. Time Spent With Patient Time: Total time spent is greater than 50% in coordination of care (as docume nted) at patient's floor/unit and/or counseling patient:
[2020-09-21] MEDS: CITALOPRAM 20 MG TABLET PO SCH (21:45)
[2020-09-21] MEDS: AZTREONAM 2 GM VIAL IV SCH (21:49)
[2020-09-22] MEDS: oxyCODONE/APAP 10/325MG TABLET PO PRN ×4 (02:01→20:38)
[2020-09-22] MEDS: ACETAMINOPHEN 325 MG TABLET PO PRN ×2 (02:02→13:44)
[2020-09-22] MEDS: 0.9 % SODIUM CHLORIDE 10 ML SYRINGE IV SCH ×5 (05:47→22:20)
[2020-09-22] MEDS: AZTREONAM 2 GM VIAL IV SCH (06:54)
[2020-09-22] MEDS: LACTATED RINGERS 1,000 ML IV SCH ×2 (06:55→22:21)
[2020-09-22 06:56] LABS: Basophils # (Auto) 0.02 K/mcL (0.00-0.20); Basophils % (Auto) 0.4 % (0.0-2.0); Eosinophils # (Auto) 0.14 K/mcL (0.00-0.70); Eosinophils % (Auto) 2.6 % (0.0-7.0); Hematocrit 35.7 % (36.0-48.0); Hemoglobin 11.2 g/dL (12.0-15.0); Lymphocytes # (Auto) 3.09 K/mcL (1.50-4.80); Lymphocytes % (Auto) 56.8 % (15.0-49.0); Mean Cell Volume 92.7 fL (80.0-100.0); Mean Corpuscular HGB Conc 31.4 g/dL (31.0-36.0); Mean Platelet Volume 10.9 fL (7.4-10.4); Monocytes # (Auto) 0.55 K/mcL (0.10-0.90); Monocytes % (Auto) 10.1 % (1.0-12.0); Neutrophils % (Auto) 30.1 % (38.0-78.0); Platelet Count 186 K/mcL (140-440); RBC 3.85 M/mcL (4.00-5.20); WBC 5.4 K/mcL (4.5-11.0)
[2020-09-22 07:31] LABS: ALT/SGPT 65 U/L (<40); AST/SGOT 79 U/L (<32); Albumin 3.2 gm/dL (3.2-5.2); Albumin/Globulin Ratio 1.2 (1.0-2.3); Alkaline Phosphatase 47 U/L (39-117); Bilirubin,Total < 0.2 mg/dL (0.1-1.0); Blood Urea Nitrogen 15 mg/dL (6-20); Calcium 8.2 mg/dL (8.6-10.4); Carbon Dioxide 27 mmol/L (22-30); Chloride 103 mmol/L (96-108); Globulin 2.7 gm/dL (2.2-3.7); Glomerular Filtration Rate 94; Glucose 84 mg/dL (70-105)
[2020-09-22 07:32] LABS: Creatine Kinase 64 U/L (24-170)
[2020-09-22] MEDS: AZTREONAM 1 GM VIAL IV SCH ×3 (07:36→22:13)
[2020-09-22] MEDS: ENOXAPARIN 40 MG/0.4 ML SYRINGE SQ SCH (08:00)
[2020-09-22] MEDS: DOCUSATE SODIUM 100 MG CAPSULE PO SCH ×2 (08:12→20:35)
[2020-09-22] MEDS: LIDOCAINE PATCH TOPICAL SCH (11:18)
--- NOTE | 2020-09-22 12:31 | Orthopedic Progress Note ---
SUBJECTIVE Subjective Patient information: Note initiated : 09/22/20 at 12:25 pm Service Date, if different from initiated Date: [] Patient: Snow Hampton 34 y/o F admitted on 09/18/20 for Left knee issue. Chief Complaint: [No acute events. Pain is controlled. ] Constitutional Vitals: Vital Signs Temp Pulse Resp BP Pulse Ox 96.2 F L 61 16 94/54 98 09/22/20 08:08 09/22/20 08:08 09/22/20 08:08 09/22/20 08:08 09/22/20 08:08 Period Temp Pulse Resp BP Sys/Waldron Pulse Ox Last 24 Hr 96.2 F-98.8 F 61-83 16-18 94-126/48-59 96-98 Intake and Output 09/21/20 09/22/20 09/22/20 21:59 05:59 13:59 Intake Total 450 800 Balance 450 800 Weight 146 lb 8 oz Intake & Output: Intake & Output 09/21/20 09/22/20 09/22/20 21:59 05:59 13:59 Intake Total 450 800 Balance 450 800 Weight 146 lb 8 oz Intake: Oral 450 800 Other: Meal Lunch Percent of Meal Consumed 75% Feeding Ability Independent # Voids 1 2 Additional findings Additional findings: General: alert and oriented Left knee: dressing removed. Continues to drain throughout portals however, decreasing. No signifciant joint effusion. Incisions otherwise are healing well. Motion with about 3-4 degree flexion contracture. Flexion to 90 degrees. foot warm well perfused. OBJ DATA Labs CBC & Chem 7: 09/22/20 05:08 09/22/20 05:07 Labs: Abnormal Lab Results 09/22/20 09/22/20 09/21/20 05:08 05:07 11:03 RBC 3.85 L Hgb 11.2 L Hct 35.7 L MPV 10.9 H Neut % (Auto) 30.1 L Lymph % (Auto) 56.8 H Absolute Neutrophils 1.64 L Anion Gap 6.0 L 7.0 L Calcium 8.2 L AST 79 H 63 H ALT 65 H C-Reactive Protein 09/21/20 09/21/20 11:03 05:25 RBC 3.91 L Hgb 11.6 L Hct 35.3 L MPV 11.2 H Neut % (Auto) Lymph % (Auto) Absolute Neutrophils Anion Gap Calcium AST ALT C-Reactive Protein 1.00 H Meds: Medications Acetaminophen (Acetaminophen 325 Mg Tablet) 650 mg PO Q6HP PRN PRN Reason: PAIN/FEVER > 101 Last Admin: 09/22/20 02:02 Dose: 650 mg Documented by: Aztreonam (Aztreonam 1 Gm Vial) 2 gm IV Q8 [facility]; Protocol Last Admin: 09/22/20 07:36 Dose: 2 gm Documented by: Citalopram Hydrobromide (Citalopram 20 Mg Tablet) 30 mg PO HS [facility] Last Admin: 09/21/20 21:45 Dose: 30 mg Documented by: Docusate Sodium (Docusate Sodium 100 Mg Capsule) 100 mg PO BID [facility] Last Admin: 09/22/20 08:12 Dose: 100 mg Documented by: Enoxaparin Sodium (Enoxaparin 40 Mg/0.4 Ml Syringe) 40 mg SQ DAILY [facility] Last Admin: 09/22/20 08:00 Dose: 40 mg Documented by: Heparin Sodium (Porcine) (Heparin Flush 10 Units/Ml 5 Ml Syringe) 2 ml IV Q12 [facility] Last Admin: 09/22/20 12:23 Dose: Not Given Documented by: Potassium Chloride 40 meq/ (Dextrose) 520 mls @ 130 mls/hr IV UD PRN PRN Reason: Potassium < 3 Magnesium Sulfate (Magnesium Sulfate) 2 gm in 50 mls @ 50 mls/hr IV UD PRN PRN Reason: Magnesium </= 1.6 Lactated Ringer's (Lactated Ringers) 1,000 mls @ 75 mls/hr IV .[id number] [facility] Last Admin: 09/22/20 06:55 Dose: Not Given Documented by: Lidocaine (Lidocaine Patch) 1 patch TOPICAL DAILY@1000 JOAQUIN Last Admin: 09/22/20 11:18 Dose: 1 patch Documented by: Morphine Sulfate (Morphine 4 Mg/Ml Vial) 0 mg IV Q3HP PRN PRN Reason: Pain Last Admin: 09/19/20 15:03 Dose: 3 mg Documented by: Ondansetron HCl (Ondansetron 4 Mg/2 Ml Vial) 4 mg IV Q4HP PRN PRN Reason: Nausea And Vomiting Oxycodone/Acetaminophen (Oxycodone/Apap 10/325mg Tablet) 1 - 2 tab PO Q4-6HP PRN; Protocol PRN Reason: Per Pain Protocol Last Admin: 09/22/20 11:18 Dose: 1 tab Documented by: Polyethylene Glycol (Polyethylene Glycol 3350 17 Gm Packet) 17 gm PO DAILYP PRN PRN Reason: Constipation Last Admin: 09/21/20 08:45 Dose: 17 gm Documented by: Potassium Chloride (Potassium Chloride 20 Meq Tablet) 40 meq PO UD PRN PRN Reason: Potssium is 3-3.5 Potassium Chloride (Potassium Chloride 20 Meq Tablet) 40 meq PO UD PRN PRN Reason: Potassium < 3 Senna (Sennosides 1 Tablet) 2 tab PO DAILYP PRN PRN Reason: Constipation Sodium Chloride (0.9 % Sodium Chloride 10 Ml Syringe) 10 ml IV Q8 [facility] Last Admin: 09/22/20 05:47 Dose: 10 ml Documented by: Sodium Chloride (0.9 % Sodium Chloride 10 Ml Syringe) 10 ml IV UD PRN PRN Reason: FLUSH Sodium Chloride (0.9 % Sodium Chloride 10 Ml Syringe) 10 ml IV Q12 [facility] Last Admin: 09/22/20 08:51 Dose: Not Given Documented by: A/P Assessment and plan (1) Serratia marcescens infection: Status: Acute Comment: POD 3 s/p left knee arthroscopic knee I&D, graft removal and hardware removal doing well -- 50% weight bearing x4 weeks post op -- cultures with serratia marcescens- tx per ID -- changed dressing again today with decreased drainage -- prophy: lovenox, ambulation, IS, foot pumps -- Dispo: ok to d/c from ortho standpoint. Will need f/u with ortho next w for wound check. Dressing changed every other day with guaze/kerlex/reggie/karis hose. Should not get it wet until follows up with orthopedics. 50% weight bearing. therapy consult placed- once a week for now. Abx per ID with follow up ID. Time Spent With Patient Time: Total time spent is greater than 50% in coordination of care (as documented) at patient's floor/unit and/or counseling patient:
[2020-09-22] MEDS ORDERED: LORazepam 2 MG/ML ORAL.SOL PO ONE (12:56)
[2020-09-22] MEDS ORDERED: LORazepam 1 MG TABLET PO ONE (13:26)
--- NOTE | 2020-09-22 13:39 | Discharge Summary ---
Discharge Provider Provider Patient information: Note initiated : 09/22/20 at 1:35 pm Service Date, if different from initiated Date: [] Patient: Snow Hampton 34 y/o F admitted on 09/18/20 for Left knee issue. Chief Complaint: [] Date of admission: 09/18/20 22:35 Primary care physician: Sepideh Pires Consults: 09/18/20 Consult to Physician [CONS] Stat Comment: Consulting Provider: Benji Del Angel Reason For Exam: Physician to Consult Consult to Physician [CONS] Stat Comment: Consulting Provider: Rome Joe Reason For Exam: Physician to Consult 09/21/20 16:46 Consult to Physician [CONS] Routine Comment: Consulting Provider: Rishi Garcia Reason For Exam: Physician to Consult Discharge Meds Discharge Medications Home Medications citalopram 30 mg PO QAM 09/18/20 [History Confirmed 09/18/20 Last Taken Unknown] aztreonam 2 gm IV Q8 84 Days ea 09/22/20 [Rx Last Taken Unknown] docusate sodium [DOK] 100 mg PO BID #60 cap 09/22/20 [Rx Last Taken Unknown] oxycodone-acetaminophen 1 tab PO Q4-6HP PRN #50 tab 09/22/20 [Rx Last Taken Unknown] COURSE Time Spent with Patient Time attestation: Total time spent providing and/or coordinating discharge services: EXAM Constitutional Vitals: Temp Pulse Resp BP Pulse Ox 35.7 C L 61 16 94/54 98 09/22/20 08:08 09/22/20 08:08 09/22/20 08:08 09/22/20 08:08 09/22/20 08:08 Discharge Data Data Completed and Pending Labs on day of discharge: Labs from last 24 hours 09/22/20 09/22/20 09/22/20 05:08 05:07 05:07 WBC 5.4 RBC 3.85 L Hgb 11.2 L Hct 35.7 L MCV 92.7 MCH 29.1 MCHC 31.4 RDW 13.0 Plt Count 186 MPV 10.9 H Neut % (Auto) 30.1 L Lymph % (Auto) 56.8 H [place] % (Auto) 10.1 Eos % (Auto) 2.6 Baso % (Auto) 0.4 Lymph # (Auto) 3.09 [place] # (Auto) 0.55 Eos # (Auto) 0.14 Baso # (Auto) 0.02 Absolute Neutrophils 1.64 L Sodium 136 Potassium 4.5 Chloride 103 Carbon Dioxide 27 Anion Gap 6.0 L BUN 15 Creatinine 0.8 GFR Calculation 94 Glucose 84 Calcium 8.2 L Total Bilirubin < 0.2 AST 79 H ALT 65 H Alkaline Phosphatase 47 Total Creatine Kinase 64 Total Protein 5.9 Albumin 3.2 Globulin 2.7 Albumin/Globulin Ratio 1.2 Preliminary micro results at discharge 09/20/20 10:16 Blood Culture - Preliminary Blood 09/20/20 10:05 Blood Culture - Preliminary Blood Discharge Plan Patient/Caregiver Discharge Instructions Prescriptions: New oxycodone-acetaminophen 10-325 mg Tablet 1 tab PO Q4-6HP PRN (Reason: Per Pain Protocol) Qty: 50 RF: 0 docusate sodium [DOK] 100 mg Capsule 100 mg PO BID Qty: 60 RF: 0 aztreonam 1 gram Recon Soln 2 gm IV Q8 84 Days RF: 0 No Action citalopram 20 mg tablet 30 mg PO QAM RF: 0 Other Ambulatory Orders: Outpatient PICC Care (Daily) Location: None Selected Ordered By: Fransico Fish Physical Therapy at Discharge - General (Routine) Location: None Selected Ordered By: Rome Joe Follow Up Plan Follow up with: Sepideh Pires PA-C [Primary Care Provider] - Prognosis: Fair QUALITY VTE Deep Vein Thrombosis/Pulmonary Embolism Present on Admission: No
--- NOTE | 2020-09-22 16:39 | XRay Report ---
INDICATION: PICC Placement TECHNIQUE: AP portable semiupright chest x-ray COMPARISON: Previous chest x-ray dated 08/15/2019 FINDINGS:There is a right-sided PICC line with its tip projected over the right coracoid process. This is probably in the distal right subclavian vein Lungs:Lungs are negative. No focal pulmonary parenchymal infiltrate or mass Heart, vascular:No significant cardiomegaly. Pulmonary vascularity is normal. No pulmonary edema or pulmonary congestion Mediastinum, amanda:No mediastinal widening. No hilar mass Pleura:No pleural fluid. No pleural-based mass or calcification Skeletal:Negative. IMPRESSION: 1. Right-sided PICC line with its tip projected over the coracoid process, probably within the right subclavian vein 2. Otherwise negative chest x-ray Interpreted and Authenticated by: Faizan Corona 09/22/20
--- NOTE | 2020-09-22 18:16 | Internal Med Progress Note ---
SUBJECTIVE Subjective Patient information: Note initiated : 09/22/20 at 6:10 pm Service Date, if different from initiated Date: [] Patient: Snow Hampton a 34 y/o F admitted on 09/18/20 for Left knee issue. Chief Complaint: [chronic osteomyelitis of the left tibia] Interval history: History of present illness: Ms. Hampton is a 34 year old F Who presents the ED with right knee pain and swelling. She has had a complicated surgery since an ACL repair in 2019 which resulted infections and washouts and subsequent ICU stay down in [place]. See your provider's note. Recently she was out take care of her horses and she came back and her not knee was increasingly red and swollen. No fevers chills. In the ED she did not have any fevers a white blood cell count that was elevated per the patient last time she went septic she did not have any inflammatory markers as well. Case discussed with infectious disease ID in [place] as well as Dr. Joe orthopedic surgery. Patient will likely need a washout. She has severe allergies to many. Antibiotics. ID physician recommended daptomycin and aztreonam if needed for gram-negative. 09/19 Poor sleep but otherwise no complaints. Awaiting MRI. 09/20 Patient had washout with removal of hardware and graft yesterday. Awaiting cultures for final antibiotic regimen and discussion with infectious disease. 8: Afebrile overnight. Blood and wound cultures no growth to date. c/o 6/10 throbbing pain of the left knee radiating to the left thigh. Denies fever or chills. Denies general body weakness. 09/22: Afebrile overnight. Failed attempt of PICC placement X2 today. After long talk with patient and at bedside, decided to replace peripheral IV, and switch to Aztreonam for tonight and tomorrow morning. Then discharge patient and have her go over to [facility] for fluoroscopy-guided PICC line placement for fpc antibiotics therapy. Constitutional Vitals: Vital Signs Temp Pulse Resp BP Pulse Ox 36.4 C 66 16 95/55 95 09/22/20 16:00 09/22/20 16:00 09/22/20 16:00 09/22/20 16:00 09/22/20 16:00 Period Temp Pulse Resp BP Sys/Waldron Pulse Ox Last 24 Hr 35.7 C-36.6 C 61-80 16-16 94-126/54-59 95-98 Intake and Output 09/22/20 09/22/20 09/22/20 05:59 13:59 21:59 Intake Total 800 Balance 800 Intake & Output: Intake & Output 09/22/20 09/22/20 09/22/20 05:59 13:59 21:59 Intake Total 800 Balance 800 Intake: Oral 800 Other: # Voids 2 General appearance: cooperative and no acute distress Head Head exam: Present atraumatic and normocephalic Eye Eye exam: Present EOMI and PERRL ENT ENT exam: Present mucous membranes moist, normal exam and normal external ear exam Neck Neck exam: Present normal inspection; Absent lymphadenopathy, tenderness and thyromegaly Respiratory Respiratory exam: Absent accessory muscle use, respiratory distress and wheezes Cardiovascular Cardiovascular exam: Present normal rate and rhythm; Absent JVD GI/Abdominal GI/Abdominal exam: Present normal bowel sounds and soft; Absent organomegaly and tenderness Extremities Exam Extremities exam: Present full ROM, normal capillary refill and normal inspection; Absent tenderness Additional comments: Left knee wrapped in surgical dressing Neurological Exam Neurological exam: Present alert, CN II-XII intact and oriented X3; Absent motor sensory deficit Psychiatric Psychiatric exam: Present normal affect and normal mood; Absent anxious and depressed Skin Skin exam: Present dry and intact OBJ DATA Labs CBC & Chem 7: 09/22/20 05:08 09/22/20 05:07 Labs: Abnormal Lab Results 09/22/20 09/22/20 09/21/20 05:08 05:07 11:03 RBC 3.85 L Hgb 11.2 L Hct 35.7 L MPV 10.9 H Neut % (Auto) 30.1 L Lymph % (Auto) 56.8 H Absolute Neutrophils 1.64 L Anion Gap 6.0 L 7.0 L Calcium 8.2 L AST 79 H 63 H ALT 65 H C-Reactive Protein 09/21/20 09/21/20 11:03 05:25 RBC 3.91 L Hgb 11.6 L Hct 35.3 L MPV 11.2 H Neut % (Auto) Lymph % (Auto) Absolute Neutrophils Anion Gap Calcium AST ALT C-Reactive Protein 1.00 H Meds: Medications Acetaminophen (Acetaminophen 325 Mg Tablet) 650 mg PO Q6HP PRN PRN Reason: PAIN/FEVER > 101 Last Admin: 09/22/20 13:44 Dose: 650 mg Documented by: Aztreonam (Aztreonam 1 Gm Vial) 2 gm IV Q8 [facility]; Protocol Last Admin: 09/22/20 15:11 Dose: 2 gm Documented by: Citalopram Hydrobromide (Citalopram 20 Mg Tablet) 30 mg PO HS [facility] Last Admin: 09/21/20 21:45 Dose: 30 mg Documented by: Docusate Sodium (Docusate Sodium 100 Mg Capsule) 100 mg PO BID [facility] Last Admin: 09/22/20 08:12 Dose: 100 mg Documented by: Enoxaparin Sodium (Enoxaparin 40 Mg/0.4 Ml Syringe) 40 mg SQ DAILY [facility] Last Admin: 09/22/20 08:00 Dose: 40 mg Documented by: Heparin Sodium (Porcine) (Heparin Flush 10 Units/Ml 5 Ml Syringe) 2 ml IV Q12 [facility] Last Admin: 09/22/20 12:23 Dose: Not Given Documented by: Potassium Chloride 40 meq/ (Dextrose) 520 mls @ 130 mls/hr IV UD PRN PRN Reason: Potassium < 3 Magnesium Sulfate (Magnesium Sulfate) 2 gm in 50 mls @ 50 mls/hr IV UD PRN PRN Reason: Magnesium </= 1.6 Lactated Ringer's (Lactated Ringers) 1,000 mls @ 75 mls/hr IV .[id number] [facility] Last Admin: 09/22/20 06:55 Dose: Not Given Documented by: Lidocaine (Lidocaine Patch) 1 patch TOPICAL DAILY@1000 JOAQUIN Last Admin: 09/22/20 11:18 Dose: 1 patch Documented by: Morphine Sulfate (Morphine 4 Mg/Ml Vial) 0 mg IV Q3HP PRN PRN Reason: Pain Last Admin: 09/19/20 15:03 Dose: 3 mg Documented by: Ondansetron HCl (Ondansetron 4 Mg/2 Ml Vial) 4 mg IV Q4HP PRN PRN Reason: Nausea And Vomiting Oxycodone/Acetaminophen (Oxycodone/Apap 10/325mg Tablet) 1 - 2 tab PO Q4-6HP PRN; Protocol PRN Reason: Per Pain Protocol Last Admin: 09/22/20 11:18 Dose: 1 tab Documented by: Polyethylene Glycol (Polyethylene Glycol 3350 17 Gm Packet) 17 gm PO DAILYP PRN PRN Reason: Constipation Last Admin: 09/21/20 08:45 Dose: 17 gm Documented by: Potassium Chloride (Potassium Chloride 20 Meq Tablet) 40 meq PO UD PRN PRN Reason: Potssium is 3-3.5 Potassium Chloride (Potassium Chloride 20 Meq Tablet) 40 meq PO UD PRN PRN Reason: Potassium < 3 Senna (Sennosides 1 Tablet) 2 tab PO DAILYP PRN PRN Reason: Constipation Sodium Chloride (0.9 % Sodium Chloride 10 Ml Syringe) 10 ml IV Q8 [facility] Last Admin: 09/22/20 15:11 Dose: 10 ml Documented by: Sodium Chloride (0.9 % Sodium Chloride 10 Ml Syringe) 10 ml IV UD PRN PRN Reason: FLUSH Sodium Chloride (0.9 % Sodium Chloride 10 Ml Syringe) 10 ml IV Q12 [facility] Last Admin: 09/22/20 08:51 Dose: Not Given Documented by: A/P Assessment and plan (1) Septic arthritis of knee: Status: Acute Comment: Associated infection with arthroscopic washout postop day 2. Follow-up on final cultures but likely the same. (2) Chronic osteomyelitis involving lower leg: Status: Acute Narrative A/P Narrative: Assessment and Plans: 1. Chronic osteomyelitis of the left knee: Bone culture positive for serratia Failed attempt of PICC placement X2 today. After long talk with patient and at bedside, decided to replace peripheral IV, and switch to Aztreonam for tonight and tomorrow morning. Then discharge patient and have her go over to [facility] for fluoroscopy-guided PICC line placement for fpc antibiotics therapy. Morphine IV PRN severe pain Percocet PRN moderate pain GI ppx: not currently indicated DVT ppx: Lovenox Code status: Full Prognosis: Stable Disposition: Inpatient med surg Time Spent With Patient Time: Total time spent is greater than 50% in coordination of care (as documented) at patient's floor/unit and/or counseling patient: QUALITY VTE Deep Vein Thrombosis/Pulmonary Embolism Present on Admission: No
[2020-09-22] MEDS: CITALOPRAM 20 MG TABLET PO SCH (20:22)
[2020-09-23] MEDS: AZTREONAM 1 GM VIAL IV SCH (06:05)
[2020-09-23] MEDS: 0.9 % SODIUM CHLORIDE 10 ML SYRINGE IV SCH ×5 (06:06→22:28)
[2020-09-23] MEDS: oxyCODONE/APAP 10/325MG TABLET PO PRN ×4 (06:06→21:30)
[2020-09-23] MEDS: morphine 4 MG/ML VIAL IV PRN (06:47)
--- NOTE | 2020-09-23 08:39 | Infectious Disease Consult ---
HPI Data of Consult Consult date: 09/23/20 Primary Care Provider: Sepideh Pires Consult Narrative cc:: CC: Benji Adamson is a 34-year-old woman who is postop day 4 from left knee ACL graft removal and button removal. I have reviewed with microbiology. Only 1 culture labeled bone grew Serratia. The other 2 specimens did not grow bacteria. Patient is ambulatory with walker. The Serratia was intermediate to aztreonam. She is currently day 3 IV aztreonam. She has multiple drug allergies limiting options. PFSH PFSH All Active Problems (Updated 09/23/20 @ 08:39 by Rishi Garcia MD) Chronic osteomyelitis involving lower leg (Acute) Serratia marcescens infection (Acute) Chronic osteomyelitis of left tibia (Acute) Septic arthritis of knee (Acute) Social History (Updated 09/21/20 @ 19:50 by Rishi Garcia MD) occupation: life trainer other: lives in [facility]. with 2 kids. positive horse contact. MEDS/ALLERGIES Home Medications and Allergies Home Medications Medication Instructions Recorded Confirmed Type citalopram 30 mg PO QAM 09/18/20 09/18/20 History aztreonam 2 gm IV Q8 84 Days ea 09/22/20 Rx docusate sodium [DOK] 100 mg PO BID #60 cap 09/22/20 Rx oxycodone-acetaminophen 1 tab PO Q4-6HP PRN #50 tab 09/22/20 Rx Allergies Allergy/AdvReac Type Severity Reaction Status Date / Time Penicillins Allergy Severe Difficulty Verified 09/21/20 11:25 Breathing ceftriaxone [From Rocephin] Allergy Mild Rash Verified 09/21/20 13:35 codeine Allergy Mild Rash Verified 09/21/20 13:35 Ertapenem Allergy Mild Rash Verified 09/21/20 13:35 moxifloxacin [From Avelox] Allergy Mild Hives Verified 09/21/20 13:35 mupirocin [From Bactroban] Allergy Mild Rash Verified 09/21/20 13:35 sulfamethoxazole Allergy Mild Rash Verified 09/21/20 13:35 [From Bactrim] trimethoprim [From Bactrim] Allergy Mild Rash Verified 09/21/20 13:35 vancomycin AdvReac Intermediate Flushing Verified 09/21/20 13:35 Physical Examination Vital Signs Vital signs: Temp Pulse Resp BP Pulse Ox 98.2 F 72 14 96/50 98 09/22/20 23:24 09/22/20 23:24 09/22/20 23:24 09/22/20 23:24 09/22/20 23:24 Additional Exam Additional exam: General: No acute respiratory distress. Skin without rash. Left lower extremity with sleeve in place. I did not take down dressing of the left leg. Results Laboratory Findings CBC and BMP: 09/22/20 05:08 09/22/20 05:07 Abnormal lab findings: Abnormal Labs 09/18/20 09/18/20 09/18/20 16:22 16:22 18:45 RBC Hgb Hct MPV 10.8 H Neut % (Auto) Lymph % (Auto) Seg Neutrophils % Lymphocytes % Absolute Neutrophils Anion Gap Calcium AST ALT C-Reactive Protein 1.80 H Synovial Neutrophils 82 H 09/19/20 09/19/20 09/19/20 03:21 03:21 03:21 RBC Hgb Hct MPV 11.0 H Neut % (Auto) Lymph % (Auto) Seg Neutrophils % 26 L Lymphocytes % 63 H Absolute Neutrophils Anion Gap Calcium 8.4 L AST ALT C-Reactive Protein 2.90 H Synovial Neutrophils 09/21/20 09/21/20 09/21/20 05:25 11:03 11:03 RBC 3.91 L Hgb 11.6 L Hct 35.3 L MPV 11.2 H Neut % (Auto) Lymph % (Auto) Seg Neutrophils % Lymphocytes % Absolute Neutrophils Anion Gap 7.0 L Calcium AST 63 H ALT C-Reactive Protein 1.00 H Synovial Neutrophils 09/22/20 09/22/20 05:07 05:08 RBC 3.85 L Hgb 11.2 L Hct 35.7 L MPV 10.9 H Neut % (Auto) 30.1 L Lymph % (Auto) 56.8 H Seg Neutrophils % Lymphocytes % Absolute Neutrophils 1.64 L Anion Gap 6.0 L Calcium 8.2 L AST 79 H ALT 65 H C-Reactive Protein Synovial Neutrophils Microbiology: Microbiology 09/18/20 19:44 Aspirate - Knee Gram Stain - Final 09/18/20 19:44 Aspirate - Knee Body Fluid Culture - Final 09/20/20 10:16 Blood Blood Culture - Preliminary 09/20/20 10:05 Blood Blood Culture - Preliminary 09/18/20 19:27 Aspirate - Left Leg Gram Stain - Final 09/18/20 19:27 Aspirate - Left Leg Body Fluid Culture - Final 09/19/20 09:15 Nose MRSA (PCR) - Final 09/18/20 19:27 Knee - Left Acid Fast Bacilli Smear - Final A/P Assessment and plan (1) Chronic osteomyelitis involving lower leg: Status: Acute Comment: Clarence is a 34-year-old woman who is postop day 4 ACL left knee graft removal with 2 button removal. The bone culture did grow Serratia which she has previously had from prior culture. She is currently day 3 IV aztreonam. The Serratia is intermediately susceptible. Unfortunately, she has multiple drug allergies. (2) Serratia marcescens infection: Status: Acute Comment: The organism is susceptible to gentamicin. I reviewed potential side effects of gentamicin including dizziness, tinnitus, hearing loss, nausea vomiting diarrhea rash and kidney effects. (3) Chronic osteomyelitis of left tibia: Status: Acute Comment: Reviewed with Dr. Joe yesterday. (4) Septic arthritis of knee: Status: Acute Comment: Knee fluid did not grow but still significant white blood cell count on cell count of the left knee. Patient was to get PICC line at [facility]. I have recommended stabilization of gent dosing before discharge to home. She will need twice weekly labs. I am expecting 6 to 8 weeks of gentamicin. She will need a baseline hearing test. I may consider challenging her with oral Cipro after she is done with gentamicin. She has a history of rash to Avelox. Gent dose will be 5 mg/kg based on ideal body weight once daily. Discharge planning possibly for Monday. Pharmacy to assist with monitoring levels. I will see her 1 week after she is discharged from the hospital. She lives in [facility]. Outpatient monitoring by home health of genta micin levels needs to be followed closely and levels need to be drawn at the correct time related to the dose. I will review with the hospitalist Dr. Fish. Primary care provider also needs to be aware of this treatment plan. Time Spent With Patient Time: Total time spent is greater than 50% in coordination of care (as documented) at patient's floor/unit and/or counseling patient:
[2020-09-23] MEDS: ENOXAPARIN 40 MG/0.4 ML SYRINGE SQ SCH (08:55)
[2020-09-23] MEDS: DOCUSATE SODIUM 100 MG CAPSULE PO SCH ×2 (08:56→21:26)
[2020-09-23] MEDS: LIDOCAINE PATCH TOPICAL SCH (10:18)
[2020-09-23 10:24] LABS: POC Blood Urea Nitrogen 16 mg/dL (6-20); POC CO2 24 mmol/L (22-30); POC Calcium, Ionized 1.15 mmEq/L (1.16-1.32); POC Chloride 102 mEq/L (96-108); POC Creatinine 0.8 mg/dL (0.6-1.2); POC Glucose, Random 91 mg/dL (70-105); POC Hematocrit 41 % (36-48); POC Potassium 4.3 mEql/L (3.3-5.1); POC Sodium 138 mEq/L (133-145)
[2020-09-23] MEDS ORDERED: GENTAMICIN PER PHARMACY IV SCH (10:50)
[2020-09-23] MEDS ORDERED: GENTAMICIN SULFATE 250 MG in 0.9 % SODIUM CHLORIDE 250 ML IV ONE (12:00)
--- NOTE | 2020-09-23 12:19 | Internal Med Progress Note ---
SUBJECTIVE Subjective Patient information: Note initiated : 09/23/20 at 12:13 pm Service Date, if different from initiated Date: [] Patient: Snow Hampton a 34 y/o F admitted on 09/18/20 for Left knee issue. Chief Complaint: [chronic osteomyelitis of the left tibia] Interval history: History of present illness: Ms. Hampton is a 34 year old F Who presents the ED with right knee pain and swelling. She has had a complicated surgery since an ACL repair in 2019 which resulted infections and washouts and subsequent ICU stay down in [place]. See your provider's note. Recently she was out take care of her horses and she came back and her not knee was increasingly red and swollen. No fevers chills. In the ED she did not have any fevers a white blood cell count that was elevated per the patient last time she went septic she did not have any inflammatory markers as well. Case discussed with infectious disease ID in [place] as well as Dr. Joe orthopedic surgery. Patient will likely need a washout. She has severe allergies to many. Antibiotics. ID physician recommended daptomycin and aztreonam if needed for gram-negative. 09/19 Poor sleep but otherwise no complaints. Awaiting MRI. 09/20 Patient had washout with removal of hardware and graft yesterday. Awaiting cultures for final antibiotic regimen and discussion with infectious disease. 09/21: Afebrile overnight. Blood and wound cultures no growth to date. c/o 07/23 throbbing pain of the left knee radiating to the left thigh. Denies fever or chills. Denies general body weakness. 09/22: Afebrile overnight. Failed attempt of PICC placement X2 today. After long talk with patient and at bedside, decided to replace peripheral IV, and switch to Aztreonam for tonight and tomorrow morning. Then discharge patient and have her go over to [facility] for fluoroscopy-guided PICC line placement for retirement antibiotics therapy. 09/23: Afebrile. Wound culture sensitivity report suggesting that Gentamicin is superior to Aztreonam for her serratia infection. She denies any fever or chills. Denies any left knee pain. Constitutional Vitals: Vital Signs Temp Pulse Resp BP Pulse Ox 35.7 C L 61 14 101/57 99 09/23/20 08:00 09/23/20 08:00 09/23/20 08:00 09/23/20 08:00 09/23/20 08:00 Period Temp Pulse Resp BP Sys/Waldron Pulse Ox Last 24 Hr 35.7 C-37.0 C 61-72 14-16 95-101/50-57 93-99 Intake and Output 09/22/20 09/23/20 09/23/20 21:59 05:59 13:59 Intake Total 570 0 800 Balance 570 0 800 Weight 66.224 kg Intake & Output: Intake & Output 09/22/20 09/23/20 09/23/20 21:59 05:59 13:59 Intake Total 570 0 800 Balance 570 0 800 Weight 66.224 kg Intake: Oral 570 0 800 Other: Meal Dinner Percent of Meal Consumed 75% Feeding Ability Independent # Voids 5 2 General appearance: cooperative and no acute distress Head Head exam: Present atraumatic and normocephalic Eye Eye exam: Present EOMI and PERRL ENT ENT exam: Present mucous membranes moist, normal exam and normal external ear exam Neck Neck exam: Present normal inspection; Absent lymphadenopathy, tenderness and thyromegaly Respiratory Respiratory exam: Absent accessory muscle use, respiratory distress and wheezes Cardiovascular Cardiovascular exam: Present normal rate and rhythm; Absent JVD GI/Abdominal GI/Abdominal exam: Present normal bowel sounds and soft; Absent organomegaly and tenderness Extremities Exam Extremities exam: Present full ROM, normal capillary refill and normal inspection; Absent tenderness Additional comments: Left knee wrapped in surgical dressing Neurological Exam Neurological exam: Present alert, CN II-XII intact and oriented X3; Absent motor sensory deficit Psychiatric Psychiatric exam: Present normal affect and normal mood; Absent anxious and depressed Skin Skin exam: Present dry and intact OBJ DATA Labs CBC & Chem 7: 09/22/20 05:08 09/22/20 05:07 Labs: Abnormal Lab Results 09/23/20 09/22/20 09/22/20 10:18 05:08 05:07 RBC 3.85 L Hgb 11.2 L Hct 35.7 L MPV 10.9 H Neut % (Auto) 30.1 L Lymph % (Auto) 56.8 H Absolute Neutrophils 1.64 L Anion Gap 6.0 L Calcium 8.2 L POC WB Ioniz Calcium 1.15 L AST 79 H ALT 65 H C-Reactive Protein 09/21/20 09/21/20 09/21/20 11:03 11:03 05:25 RBC 3.91 L Hgb 11.6 L Hct 35.3 L MPV 11.2 H Neut % (Auto) Lymph % (Auto) Absolute Neutrophils Anion Gap 7.0 L Calcium POC WB Ioniz Calcium AST 63 H ALT C-Reactive Protein 1.00 H Meds: Medications Acetaminophen (Acetaminophen 325 Mg Tablet) 650 mg PO Q6HP PRN PRN Reason: PAIN/FEVER > 101 Last Admin: 09/22/20 13:44 Dose: 650 mg Documented by: Citalopram Hydrobromide (Citalopram 20 Mg Tablet) 30 mg PO HS [facility] Last Admin: 09/22/20 20:22 Dose: 30 mg Documented by: Docusate Sodium (Docusate Sodium 100 Mg Capsule) 100 mg PO BID [facility] Last Admin: 09/23/20 08:56 Dose: 100 mg Documented by: Enoxaparin Sodium (Enoxaparin 40 Mg/0.4 Ml Syringe) 40 mg SQ DAILY [facility] Last Admin: 09/23/20 08:55 Dose: 40 mg Documented by: Gentamicin Sulfate (Gentamicin Per Pharmacy) 1 order IV UD [facility]; Protocol Heparin Sodium (Porcine) (Heparin Flush 10 Units/Ml 5 Ml Syringe) 2 ml IV Q12 [facility] Last Admin: 09/23/20 08:56 Dose: Not Given Documented by: Potassium Chloride 40 meq/ (Dextrose) 520 mls @ 130 mls/hr IV UD PRN PRN Reason: Potassium < 3 Magnesium Sulfate (Magnesium Sulfate) 2 gm in 50 mls @ 50 mls/hr IV UD PRN PRN Reason: Magnesium </= 1.6 Gentamicin Sulfate 250 mg/ (Sodium Chloride) 256.25 mls @ 256.25 mls/hr IV ONCE ONE Stop: 09/23/20 12:59 Last Admin: 09/23/20 12:08 Dose: 125 mls/hr Documented by: Lidocaine (Lidocaine Patch) 1 patch TOPICAL DAILY@1000 JOAQUIN Last Admin: 09/23/20 10:18 Dose: 1 patch Documented by: Morphine Sulfate (Morphine 4 Mg/Ml Vial) 0 mg IV Q3HP PRN PRN Reason: Pain Last Admin: 09/23/20 06:47 Dose: 1 mg Documented by: Ondansetron HCl (Ondansetron 4 Mg/2 Ml Vial) 4 mg IV Q4HP PRN PRN Reason: Nausea And Vomiting Oxycodone/Acetaminophen (Oxycodone/Apap 10/325mg Tablet) 1 - 2 tab PO Q4-6HP PRN; Protocol PRN Reason: Per Pain Protocol Last Admin: 09/23/20 10:23 Dose: 2 tab Documented by: Polyethylene Glycol (Polyethylene Glycol 3350 17 Gm Packet) 17 gm PO DAILYP PRN PRN Reason: Constipation Last Admin: 09/21/20 08:45 Dose: 17 gm Documented by: Potassium Chloride (Potassium Chloride 20 Meq Tablet) 40 meq PO UD PRN PRN Reason: Potssium is 3-3.5 Potassium Chloride (Potassium Chloride 20 Meq Tablet) 40 meq PO UD PRN PRN Reason: Potassium < 3 Senna (Sennosides 1 Tablet) 2 tab PO DAILYP PRN PRN Reason: Constipation Sodium Chloride (0.9 % Sodium Chloride 10 Ml Syringe) 10 ml IV Q8 [facility] Last Admin: 09/23/20 06:06 Dose: 10 ml Documented by: Sodium Chloride (0.9 % Sodium Chloride 10 Ml Syringe) 10 ml IV UD PRN PRN Reason: FLUSH Sodium Chloride (0.9 % Sodium Chloride 10 Ml Syringe) 10 ml IV Q12 [facility] Last Admin: 09/23/20 08:56 Dose: Not Given Documented by: A/P Assessment and plan (1) Septic arthritis of knee: Status: Acute Comment: Knee fluid did not grow but still significant white blood cell count on cell count of the left knee. Patient was to get PICC line at [facility]. I have recommended stabilization of gent dosing before discharge to home. She will need twice weekly labs. I am expecting 6 to 8 weeks of gentamicin. She will need a baseline hearing test. I may consider challenging her with oral Cipro after she is done with gentamicin. She has a history of rash to Avelox. Gent dose will be 5 mg/kg based on ideal body weight once daily. Discharge planning possibly for Monday. Pharmacy to assist with monitoring levels. I will see her 1 week after she is discharged from the hospital. She lives in [facility]. Outpatient monitoring by home health of gentamicin levels needs to be followed closely and levels need to be drawn at the correct time related to the dose. I will review with the hospitalist Dr. Fish. Primary care provider also needs to be aware of this treatment plan. (2) Chronic osteomyelitis involving lower leg: Status: Acute Comment: Clarence is a 34-year-old woman who is postop day 4 ACL left knee graft removal with 2 button removal. The bone culture did grow Serratia which she has previously had from prior culture. She is currently day 3 IV aztreonam. The Serratia is intermediately susceptible. Unfortunately, she has multiple drug allergies. Narrative A/P Narrative: Assessment and Plans: 1. Chronic osteomyelitis of the left knee: Bone culture positive for serratia, sensitivity report showing Gentamicin superior to Aztreonam d/c Aztreonam Start Gentamicin 5mg/kg ideal body weight= 250mg IV daily for 6-8 weeks Reattempt PICC line placement Need drug level monitoring 12 hour after the 1st dose and then trough, as well as baseline hearing test and twice weekly labs (CMP, CBC, CRP) monitoring Morphine IV PRN severe pain Percocet PRN moderate pain GI ppx: not currently indicated DVT ppx: Lovenox Code status: Full Prognosis: Stable Disposition: Inpatient med surg Time Spent With Patient Time: Total time spent is greater than 50% in coordination of care (as documented) at patient's floor/unit and/or counseling patient: Total time spent with greater than 50% in coordination of care (as documented) at patient's floor/unit and/or counseling patient:: 25 - 35 minutes QUALITY VTE Deep Vein Thrombosis/Pulmonary Embolism Present on Admission: No
--- NOTE | 2020-09-23 16:41 | Surgical Pathology Report ---
Histology Microscopic Diagnosis Specimen A- BONE, LEFT TIBIA BIOPSY: --- ACUTE AND CHRONIC OSTEOMYELITIS WITH CRUSH ARTIFACT, SEE COMMENT. Comments Sections of the tibial biopsy show acute osteomyelitis with features of chronicity. No fungal, bacterial or acid fast organisms are identified by special stains GMS, Gram and AFB, respectively, with adequate technical controls. Correlation with concurrent microbiologic studies is required. Procedural Impression Rule out osteomyelitis. Gross Description Received in fresh designated left tibia, are multiple fragments of brown-england to mclain-england bone ranging in size from 0.1 up to 0.6 cm in greatest dimension. Totally submitted in one cassette following decalcification. (K[facility]:adj) Electronically Signed Giulia Salas MD, FCAP Electronically Signed 09/23/2020 16:39
[2020-09-23] MEDS: CITALOPRAM 20 MG TABLET PO SCH (21:22)
[2020-09-24 01:18] LABS: Gentamicin Peak Test 0.7 ug/mL (<0.3)
[2020-09-24] MEDS: 0.9 % SODIUM CHLORIDE 10 ML SYRINGE IV SCH ×5 (05:08→21:40)
[2020-09-24] MEDS: ACETAMINOPHEN 325 MG TABLET PO PRN (06:38)
--- NOTE | 2020-09-24 06:40 | Orthopedic Progress Note ---
SUBJECTIVE Subjective Patient information: Note initiated : 09/24/20 at 6:33 am Service Date, if different from initiated Date: [] Patient: Snow Hampton 34 y/o F admitted on 09/18/20 for Left knee issue. Chief Complaint: [No new issues. Pain controlled.] Constitutional Vitals: Vital Signs Temp Pulse Resp BP Pulse Ox 98.0 F 59 L 12 91/53 98 09/23/20 21:58 09/23/20 21:58 09/23/20 21:58 09/23/20 21:58 09/23/20 21:58 Period Temp Pulse Resp BP Sys/Waldron Pulse Ox Last 24 Hr 96.3 F-98.2 F 58-73 12-14 91-102/53-58 98-99 Intake and Output 09/23/20 09/24/20 09/24/20 21:59 05:59 13:59 Intake Total 650 256.25 Balance 650 256.25 Weight 147 lb Intake & Output: Intake & Output 09/23/20 09/24/20 09/24/20 21:59 05:59 13:59 Intake Total 650 256.25 Balance 650 256.25 Weight 147 lb Intake: IV 256.25 Gentamicin Sulfate 250 mg In 256.25 Sodium Chloride 0.9% 250 ml @ 256.25 mls/hr IV ONCE ONE Rx#: [id number] Oral 650 Other: Meal Dinner Percent of Meal Consumed 100% Feeding Ability Independent # Voids 1 Additional findings Additional findings: General: alert and oriented, appropriate Let knee: dressing removed. Drainage is minimal. Portals are closing. Lateral incision clean, dry and intact. The tibial incision intact. No significant tenderness over this area, the inferior portion has a bit of erythema. OBJ DATA Labs CBC & Chem 7: 09/22/20 05:08 09/22/20 05:07 Labs: Abnormal Lab Results 09/24/20 09/23/20 09/22/20 00:12 10:18 05:08 RBC 3.85 L Hgb 11.2 L Hct 35.7 L MPV 10.9 H Neut % (Auto) 30.1 L Lymph % (Auto) 56.8 H Absolute Neutrophils 1.64 L Anion Gap Calcium POC WB Ioniz Calcium 1.15 L AST ALT C-Reactive Protein Gentamicin Peak 0.7 H 0809/21/20 09/21/20 05:07 11:03 11:03 RBC 3.91 L Hgb 11.6 L Hct 35.3 L MPV 11.2 H Neut % (Auto) Lymph % (Auto) Absolute Neutrophils Anion Gap 6.0 L 7.0 L Calcium 8.2 L POC WB Ioniz Calcium AST 79 H 63 H ALT 65 H C-Reactive Protein Gentamicin Peak 09/21/20 05:25 RBC Hgb Hct MPV Neut % (Auto) Lymph % (Auto) Absolute Neutrophils Anion Gap Calcium POC WB Ioniz Calcium AST ALT C-Reactive Protein 1.00 H Gentamicin Peak Meds: Medications Acetaminophen (Acetaminophen 325 Mg Tablet) 650 mg PO Q6HP PRN PRN Reason: PAIN/FEVER > 101 Last Admin: 09/22/20 13:44 Dose: 650 mg Documented by: Citalopram Hydrobromide (Citalopram 20 Mg Tablet) 30 mg PO HS [facility] Last Admin: 09/23/20 21:22 Dose: 30 mg Documented by: Docusate Sodium (Docusate Sodium 100 Mg Capsule) 100 mg PO BID [facility] Last Admin: 09/23/20 21:26 Dose: Not Given Documented by: Enoxaparin Sodium (Enoxaparin 40 Mg/0.4 Ml Syringe) 40 mg SQ DAILY [facility] Last Admin: 09/23/20 08:55 Dose: 40 mg Documented by: Gentamicin Sulfate (Gentamicin Per Pharmacy) 1 order IV UD [facility]; Protocol Heparin Sodium (Porcine) (Heparin Flush 10 Units/Ml 5 Ml Syringe) 2 ml IV Q12 [facility] Last Admin: 09/23/20 21:26 Dose: Not Given Documented by: Potassium Chloride 40 meq/ (Dextrose) 520 mls @ 130 mls/hr IV UD PRN PRN Reason: Potassium < 3 Magnesium Sulfate (Magnesium Sulfate) 2 gm in 50 mls @ 50 mls/hr IV UD PRN PRN Reason: Magnesium </= 1.6 Lidocaine (Lidocaine Patch) 1 patch TOPICAL DAILY@1000 [facility] Last Admin: 09/23/20 10:18 Dose: 1 patch Documented by: Morphine Sulfate (Morphine 4 Mg/Ml Vial) 0 mg IV Q3HP PRN PRN Reason: Pain Last Admin: 09/23/20 06:47 Dose: 1 mg Documented by: Ondansetron HCl (Ondansetron 4 Mg/2 Ml Vial) 4 mg IV Q4HP PRN PRN Reason: Nausea And Vomiting Oxycodone/Acetaminophen (Oxycodone/Apap 10/325mg Tablet) 1 - 2 tab PO Q4-6HP PRN; Protocol PRN Reason: Per Pain Protocol Last Admin: 09/23/20 21:30 Dose: 1 tab Documented by: Polyethylene Glycol (Polyethylene Glycol 3350 17 Gm Packet) 17 gm PO DAILYP PRN PRN Reason: Constipation Last Admin: 09/21/20 08:45 Dose: 17 gm Documented by: Potassium Chloride (Potassium Chloride 20 Meq Tablet) 40 meq PO UD PRN PRN Reason: Potssium is 3-3.5 Potassium Chloride (Potassium Chloride 20 Meq Tablet) 40 meq PO UD PRN PRN Reason: Potassium < 3 Senna (Sennosides 1 Tablet) 2 tab PO DAILYP PRN PRN Reason: Constipation Sodium Chloride (0.9 % Sodium Chloride 10 Ml Syringe) 10 ml IV Q8 [facility] Last Admin: 09/24/20 05:08 Dose: Not Given Documented by: Sodium Chloride (0.9 % Sodium Chloride 10 Ml Syringe) 10 ml IV UD PRN PRN Reason: FLUSH Sodium Chloride (0.9 % Sodium Chloride 10 Ml Syringe) 10 ml IV Q12 [facility] Last Admin: 09/23/20 22:28 Dose: Not Given Documented by: A/P Assessment and plan (1) Chronic osteomyelitis of left tibia: Status: Acute Comment: POD 5 s/p arthroscopic I&D of left septic knee, ACL graft removal and metal implant removal -- 50% weight bearing x4 weeks -- IV abx has been changed to gent -- oral pain meds but is minimal at this time -- Prophy: IS, lovenox, ambulation, foot pumps -- Dispo: appears for plan to d/c Monday with home infusion services. Can coordinate follow up with ID so can see her next Monday in clinic for wound check and suture removal. 50% weight bearing. therapy consult in chart, pain meds in chart for d/c, everyother dressing changes at home. Time Spent With Patient Time: Total time spent is greater than 50% in coordination of care (as documented) at patient's floor/unit and/or counseling patient:
[2020-09-24 09:21] LABS: POC Blood Urea Nitrogen 14 mg/dL (6-20); POC CO2 22 mmol/L (22-30); POC Calcium, Ionized 1.08 mmEq/L (1.16-1.32); POC Chloride 102 mEq/L (96-108); POC Creatinine 0.7 mg/dL (0.6-1.2); POC Glucose, Random 158 mg/dL (70-105); POC Hematocrit 41 % (36-48); POC Potassium 3.8 mEql/L (3.3-5.1); POC Sodium 136 mEq/L (133-145)
[2020-09-24] MEDS ORDERED: ONDANSETRON 4 MG ODT TABLET SL ONE (10:15)
[2020-09-24] MEDS: ENOXAPARIN 40 MG/0.4 ML SYRINGE SQ SCH (10:41)
[2020-09-24] MEDS: DOCUSATE SODIUM 100 MG CAPSULE PO SCH ×2 (10:42→21:10)
[2020-09-24] MEDS: LIDOCAINE PATCH TOPICAL SCH (10:42)
[2020-09-24] MEDS: IBUPROFEN 600 MG TABLET PO PRN ×2 (10:42→21:10)
--- NOTE | 2020-09-24 12:37 | Internal Med Progress Note ---
SUBJECTIVE Subjective Patient information: Note initiated : 09/24/20 at 12:33 pm Service Date, if different from initiated Date: [] Patient: Snow Hampton a 34 y/o F admitted on 09/18/20 for Left knee issue. Chief Complaint: [chronic osteomyelitis of the left tibia] Interval history: History of present illness: Ms. Hampton is a 34 year old F Who presents the ED with right knee pain and swelling. She has had a complicated surgery since an ACL repair in 2019 which resulted infections and washouts and subsequent ICU stay down in [place]. See your provider's note. Recently she was out take care of her horses and she came back and her not knee was increasingly red and swollen. No fevers chills. In the ED she did not have any fevers a white blood cell count that was elevated per the patient last time she went septic she did not have any inflammatory markers as well. Case discussed with infectious disease ID in [place] as well as Dr. Joe orthopedic surgery. Patient will likely need a washout. She has severe allergies to many. Antibiotics. ID physician recommended daptomycin and aztreonam if needed for gram-negative. 09/19 Poor sleep but otherwise no complaints. Awaiting MRI. 09/20 Patient had washout with removal of hardware and graft yesterday. Awaiting cultures for final antibiotic regimen and discussion with infectious disease. 09/21: Afebrile overnight. Blood and wound cultures no growth to date. c/o 07/23 throbbing pain of the left knee radiating to the left thigh. Denies fever or chills. Denies general body weakness. 09/22: Afebrile overnight. Failed attempt of PICC placement X2 today. After long talk with patient and at bedside, decided to replace peripheral IV, and switch to Aztreonam for tonight and tomorrow morning. Then discharge patient and have her go over to [facility] for fluoroscopy-guided PICC line placement for group home antibiotics therapy. 09/23: Afebrile. Wound culture sensitivity report suggesting that Gentamicin is superior to Aztreonam for her serratia infection. She denies any fever or chills. Denies any left knee pain. 09/24: s/p first dose of Gentamicin yesterday. She denies any fever or chills. Denies any left knee pain. Constitutional Vitals: Vital Signs Temp Pulse Resp BP Pulse Ox 36.7 C 79 12 100/62 96 09/24/20 08:00 09/24/20 08:00 09/24/20 08:00 09/24/20 08:00 09/24/20 08:00 Period Temp Pulse Resp BP Sys/Waldron Pulse Ox Last 24 Hr 36.5 C-36.8 C 58-79 12-14 91-102/53-62 96-98 Intake and Output 09/23/20 09/24/20 09/24/20 21:59 05:59 13:59 Intake Total 650 256.25 Balance 650 256.25 Weight 66.678 kg Intake & Output: Intake & Output 09/23/20 09/24/20 09/24/20 21:59 05:59 13:59 Intake Total 650 256.25 Balance 650 256.25 Weight 66.678 kg Intake: IV 256.25 Gentamicin Sulfate 250 mg In 256.25 Sodium Chloride 0.9% 250 ml @ 256.25 mls/hr IV ONCE ONE Rx#: [id number] Oral 650 Other: Meal Dinner Percent of Meal Consumed 100% Feeding Ability Independent # Voids 1 General appearance: cooperative and no acute distress Head Head exam: Present atraumatic and normocephalic Eye Eye exam: Present EOMI and PERRL ENT ENT exam: Present mucous membranes moist, normal exam and normal external ear exam Neck Neck exam: Present normal inspection; Absent lymphadenopathy, tenderness and thyromegaly Respiratory Respiratory exam: Absent accessory muscle use, respiratory distress and wheezes Cardiovascular Cardiovascular exam: Present normal rate and rhythm; Absent JVD GI/Abdominal GI/Abdominal exam: Present normal bowel sounds and soft; Absent organomegaly and tenderness Extremities Exam Extremities exam: Present full ROM, normal capillary refill and normal inspection; Absent tenderness Additional comments: Left knee wrapped in surgical dressing Neurological Exam Neurological exam: Present alert, CN II-XII intact and oriented X3; Absent motor sensory deficit Psychiatric Psychiatric exam: Present normal affect and normal mood; Absent anxious and depressed Skin Skin exam: Present dry and intact OBJ DATA Labs CBC & Chem 7: 09/22/20 05:08 09/22/20 05:07 Labs: Abnormal Lab Results 09/24/20 09/24/20 09/23/20 09:08 00:12 10:18 RBC Hgb Hct MPV Neut % (Auto) Lymph % (Auto) Absolute Neutrophils Anion Gap POC Glucose 158 H Calcium POC WB Ioniz Calcium 1.08 L 1.15 L AST ALT Gentamicin Peak 0.7 H 09/22/20 09/22/20 05:08 05:07 RBC 3.85 L Hgb 11.2 L Hct 35.7 L MPV 10.9 H Neut % (Auto) 30.1 L Lymph % (Auto) 56.8 H Absolute Neutrophils 1.64 L Anion Gap 6.0 L POC Glucose Calcium 8.2 L POC WB Ioniz Calcium AST 79 H ALT 65 H Gentamicin Peak Meds: Medications Acetaminophen (Acetaminophen 325 Mg Tablet) 650 mg PO Q6HP PRN PRN Reason: PAIN/FEVER > 101 Last Admin: 09/24/20 06:38 Dose: 650 mg Documented by: Citalopram Hydrobromide (Citalopram 20 Mg Tablet) 30 mg PO HS [facility] Last Admin: 09/23/20 21:22 Dose: 30 mg Documented by: Docusate Sodium (Docusate Sodium 100 Mg Capsule) 100 mg PO BID [facility] Last Admin: 09/24/20 10:42 Dose: Not Given Documented by: Enoxaparin Sodium (Enoxaparin 40 Mg/0.4 Ml Syringe) 40 mg SQ DAILY [facility] Last Admin: 09/24/20 10:41 Dose: 40 mg Documented by: Gentamicin Sulfate (Gentamicin Per Pharmacy) 1 order IV UD [facility]; Protocol Heparin Sodium (Porcine) (Heparin Flush 10 Units/Ml 5 Ml Syringe) 2 ml IV Q12 [facility] Last Admin: 09/24/20 10:42 Dose: Not Given Documented by: Potassium Chloride 40 meq/ (Dextrose) 520 mls @ 130 mls/hr IV UD PRN PRN Reason: Potassium < 3 Magnesium Sulfate (Magnesium Sulfate) 2 gm in 50 mls @ 50 mls/hr IV UD PRN PRN Reason: Magnesium </= 1.6 Ibuprofen (Ibuprofen 600 Mg Tablet) 600 mg PO Q6HP PRN PRN Reason: PAIN/FEVER > 101 Last Admin: 09/24/20 10:42 Dose: 600 mg Documented by: Lidocaine (Lidocaine Patch) 1 patch TOPICAL DAILY@1000 [facility] Last Admin: 09/24/20 10:42 Dose: 1 patch Documented by: Morphine Sulfate (Morphine 4 Mg/Ml Vial) 0 mg IV Q3HP PRN PRN Reason: Pain Last Admin: 09/23/20 06:47 Dose: 1 mg Documented by: Ondansetron HCl (Ondansetron 4 Mg/2 Ml Vial) 4 mg IV Q4HP PRN PRN Reason: Nausea And Vomiting Oxycodone/Acetaminophen (Oxycodone/Apap 10/325mg Tablet) 1 - 2 tab PO Q4-6HP PRN; Protocol PRN Reason: Per Pain Protocol Last Admin: 09/23/20 21:30 Dose: 1 tab Documented by: Polyethylene Glycol (Polyethylene Glycol 3350 17 Gm Packet) 17 gm PO DAILYP PRN PRN Reason: Constipation Last Admin: 09/21/20 08:45 Dose: 17 gm Documented by: Potassium Chloride (Potassium Chloride 20 Meq Tablet) 40 meq PO UD PRN PRN Reason: Potssium is 3-3.5 Potassium Chloride (Potassium Chloride 20 Meq Tablet) 40 meq PO UD PRN PRN Reason: Potassium < 3 Senna (Sennosides 1 Tablet) 2 tab PO DAILYP PRN PRN Reason: Constipation Sodium Chloride (0.9 % Sodium Chloride 10 Ml Syringe) 10 ml IV Q8 [facility] Last Admin: 09/24/20 05:08 Dose: Not Given Documented by: Sodium Chloride (0.9 % Sodium Chloride 10 Ml Syringe) 10 ml IV UD PRN PRN Reason: FLUSH Sodium Chloride (0.9 % Sodium Chloride 10 Ml Syringe) 10 ml IV Q12 [facility] Last Admin: 09/24/20 10:42 Dose: Not Given Documented by: A/P Assessment and plan (1) Septic arthritis of knee: Status: Acute Comment: Knee fluid did not grow but still significant white blood cell count on cell count of the left knee. Patient was to get PICC line at [facility] today. I have recommended stabilization of gent dosing before discharge to home. She will need twice weekly labs. I am expecting 6 to 8 weeks of gentamicin. She will need a baseline hearing test. I may consider challenging her with oral Cipro after she is done with gentamicin. She has a history of rash to Avelox. Gent dose will be 5 mg/kg based on ideal body weight once daily. Discharge planning possibly for Monday. Pharmacy to assist [facility] monitoring levels. I will see her 1 week after she is discharged from the hospital. She lives in [facility]. Outpatient monitoring by home health of gentamicin levels needs to be followed closely and levels need to be drawn at the correct time related to the dose. I will review with the hospitalist Dr. Fish. Primary care provider also needs to be aware of this treatment plan. (2) Chronic osteomyelitis involving lower leg: Status: Acute Comment: Clarence is a 34-year-old woman who is postop day 4 ACL left knee graft removal with 2 button removal. The bone culture did grow Serratia which she has previ ously had from prior culture. She is currently day 3 IV aztreonam. The Serratia is intermediately susceptible. Unfortunately, she has multiple drug allergies. Narrative A/P Narrative: Assessment and Plans: 1. Chronic osteomyelitis of the left knee: Bone culture positive for serratia, sensitivity report showing Gentamicin superior to Aztreonam Gentamicin 5mg/kg ideal body weight= 250mg IV daily for 6-8 weeks PICC insertion at [facility] outpatient upon discharge Need drug level monitoring 12 hour after the 1st dose and then trough, as well as baseline hearing test and twice weekly labs (CMP, CBC, CRP) monitoring Morphine IV PRN severe pain Percocet PRN moderate pain 50% weight bearing, every other day dressing change at home, and f/u with Dr. Joe in one week next Monday GI ppx: not currently indicated DVT ppx: Lovenox Code status: Full Prognosis: Stable Disposition: Inpatient med surg Time Spent With Patient Time: Total time spent is greater than 50% in coordination of care (as documented) at patient's floor/unit and/or counseling patient: Total time spent with greater than 50% in coordination of care (as documented) a t patient's floor/unit and/or counseling patient:: 15 - 24 minutes QUALITY VTE Deep Vein Thrombosis/Pulmonary Embolism Present on Admission: No
[2020-09-24] MEDS ORDERED: GENTAMICIN SULFATE 250 MG in 0.9 % SODIUM CHLORIDE 250 ML IV ONE (15:00)
[2020-09-24] MEDS: oxyCODONE/APAP 10/325MG TABLET PO PRN (15:37)
--- NOTE | 2020-09-24 18:48 | Infectious Disease Consult ---
HPI Data of Consult Consult date: 09/24/20 Primary Care Provider: Sepideh Pires Family Provider: Snow is a 34-year-old woman who is currently postop day 5 from left knee ACL graft removal with 2 buttons. Cultures positive for Serratia marcescens. She is currently day for gram-negative carol coverage. She was switched from aztreonam to gentamicin yesterday. She is receiving 5 mg/kg based on ideal body weight. 250 mg once daily. She received her first dose yesterday at noon second dose at 3 PM today. She has tolerated gentamicin. She has a right peripheral line in place. Left PICC line to be placed at [facility] tomorrow. Discharge planning for tomorrow. She reports left knee pain at 2-3 out of 10. Consult Narrative cc:: CC: Benji Del Angel PFSH PFSH All Active Problems (Updated 09/24/20 @ 18:48 by Rishi Garcia MD) Chronic osteomyelitis involving lower leg (Acute) Serratia marcescens infection (Acute) Chronic osteomyelitis of left tibia (Acute) Septic arthritis of knee (Acute) Social History (Updated 09/21/20 @ 19:50 by Rishi Garcia MD) occupation: program trainer other: lives in [facility]. with 2 kids. positive horse contact. MEDS/ALLERGIES Home Medications and Allergies Home Medications Medication Instructions Recorded Confirmed Type citalopram 30 mg PO QAM 09/18/20 09/18/20 History docusate sodium [DOK] 100 mg PO BID #60 cap 09/22/20 Rx oxycodone-acetaminophen 1 tab PO Q4-6HP PRN #50 tab 09/22/20 Rx Allergies Allergy/AdvReac Type Severity Reaction Status Date / Time Penicillins Allergy Severe Difficulty Verified 09/21/20 11:25 Breathing ceftriaxone [From Rocephin] Allergy Mild Rash Verified 09/21/20 13:35 codeine Allergy Mild Rash Verified 09/21/20 13:35 Ertapenem Allergy Mild Rash Verified 09/21/20 13:35 moxifloxacin [From Avelox] Allergy Mild Hives Verified 09/21/20 13:35 mupirocin [From Bactroban] Allergy Mild Rash Verified 09/21/20 13:35 sulfamethoxazole Allergy Mild Rash Verified 09/21/20 13:35 [From Bactrim] trimethoprim [From Bactrim] Allergy Mild Rash Verified 09/21/20 13:35 vancomycin AdvReac Intermediate Flushing Verified 09/21/20 13:35 Physical Examination Vital Signs Vital signs: Temp Pulse Resp BP Pulse Ox 96.9 F L 72 12 98/68 98 09/24/20 16:00 09/24/20 16:00 09/24/20 16:00 09/24/20 16:00 09/24/20 16:00 Additional Exam Additional exam: General: No acute distress. Skin without rash. Left knee dressed. I did not remove the dressing. She is able to flex the knee. Right peripheral line in place. Results Laboratory Findings CBC and BMP: 09/22/20 05:08 09/22/20 05:07 Abnormal lab findings: Abnormal Labs 09/18/20 09/18/20 09/18/20 16:22 16:22 18:45 RBC Hgb Hct MPV 10.8 H Neut % (Auto) Lymph % (Auto) Seg Neutrophils % Lymphocytes % Absolute Neutrophils Anion Gap POC Glucose Calcium POC WB Ioniz Calcium AST ALT C-Reactive Protein 1.80 H Synovial Neutrophils 82 H Gentamicin Peak 09/19/20 09/19/20 09/19/20 03:21 03:21 03:21 RBC Hgb Hct MPV 11.0 H Neut % (Auto) Lymph % (Auto) Seg Neutrophils % 26 L Lymphocytes % 63 H Absolute Neutrophils Anion Gap POC Glucose Calcium 8.4 L POC WB Ioniz Calcium AST ALT C-Reactive Protein 2.90 H Synovial Neutrophils Gentamicin Peak 09/21/20 09/21/20 09/21/20 05:25 11:03 11:03 RBC 3.91 L Hgb 11.6 L Hct 35.3 L MPV 11.2 H Neut % (Auto) Lymph % (Auto) Seg Neutrophils % Lymphocytes % Absolute Neutrophils Anion Gap 7.0 L POC Glucose Calcium POC WB Ioniz Calcium AST 63 H ALT C-Reactive Protein 1.00 H Synovial Neutrophils Gentamicin Peak 09/22/20 09/22/20 09/23/20 05:07 05:08 10:18 RBC 3.85 L Hgb 11.2 L Hct 35.7 L MPV 10.9 H Neut % (Auto) 30.1 L Lymph % (Auto) 56.8 H Seg Neutrophils % Lymphocytes % Absolute Neutrophils 1.64 L Anion Gap 6.0 L POC Glucose Calcium 8.2 L POC WB Ioniz Calcium 1.15 L AST 79 H ALT 65 H C-Reactive Protein Synovial Neutrophils Gentamicin Peak 09/24/20 09/24/20 00:12 09:08 RBC Hgb Hct MPV Neut % (Auto) Lymph % (Auto) Seg Neutrophils % Lymphocytes % Absolute Neutrophils Anion Gap POC Glucose 158 H Calcium POC WB Ioniz Calcium 1.08 L AST ALT C-Reactive Protein Synovial Neutrophils Gentamicin Peak 0.7 H Microbiology: Microbiology 09/20/20 10:16 Blood Blood Culture - Preliminary 09/20/20 10:05 Blood Blood Culture - Preliminary 09/18/20 19:44 Aspirate - Knee Gram Stain - Final 09/18/20 19:44 Aspirate - Knee Body Fluid Culture - Final 09/18/20 19:27 Aspirate - Left Leg Gram Stain - Final 09/18/20 19:27 Aspirate - Left Leg Body Fluid Culture - Final 09/19/20 09:15 Nose MRSA (PCR) - Final 09/18/20 19:27 Knee - Left Acid Fast Bacilli Smear - Final Creatinine 0.7. 12-hour gent level 0.7. True trough less than 0.3. A/P Assessment and plan (1) Septic arthritis of knee: Status: Acute Comment: Clarence is a 34-year-old woman who is postop day 5 left ACL graft removal for infection along with 2 buttons. She has been on gram-negative carol coverage for 4 days. Aztreonam was switched to gentamicin yesterday. She is receiving 250 mg once daily. Check levels appropriate. She is tolerating. Planning 6 to 8 weeks of IV gentamicin. I plan to see her in clinic in 1 week. (2) Chronic osteomyelitis of left tibia: Status: Acute (3) Serratia marcescens infection: Status: Acute Comment: I have reviewed with pharmacy today as well as nursing staff. Another gent level will be obtained at 1 AM tomorrow morning as well as a true trough at 230 tomorrow afternoon. She plans to discharge tomorrow for PICC line at [facility] at 3:00. Tomorrow's dose will begin at 10 PM. This will be her daily scheduled dosing time. She will use [facility] for infusion service. It will be important to make sure that she has a delivery for tomorrow evening dose at 10 PM. She will have labs completed Mondays and at 8 AM PRL lab at [facility]. This will give a 10-hour level post infusion at 10 PM the night before. Monday labs will include CBC CMP sed rate CRP and gent level. labs will include BMP and gent level. I only expect to do twice weekly labs for the first 2 weeks If kidney function remains stable along with gent levels. If her 10-hour level starts to rise, I will also need to document true trough levels. I scheduled another appointment with her in 1 week at 9 AM. I discussed the possibility of switching to oral ciprofloxacin in 6 to 8 weeks. She has a previous history of Avelox reaction after 1 dose that caused a rash several years ago. Time Spent With Patient Time: Total time spent is greater than 50% in coordination of care (as documented) at patient's floor/unit and/or counseling patient:
[2020-09-24] MEDS: CITALOPRAM 20 MG TABLET PO SCH (21:10)
[2020-09-25] MEDS: 0.9 % SODIUM CHLORIDE 10 ML SYRINGE IV SCH ×2 (06:51→09:01)
[2020-09-25] MEDS: IBUPROFEN 600 MG TABLET PO PRN (07:54)
--- NOTE | 2020-09-25 08:59 | Discharge Summary ---
Discharge Provider Provider Patient information: Note initiated : 09/25/20 at 8:56 am Service Date, if different from initiated Date: [] Patient: Snow Hampton 34 y/o F admitted on 09/18/20 for Left knee issue. Chief Complaint: [chronic osteomyelitis of the left knee ] Date of admission: 09/18/20 22:35 Discharge date: 09/25/20 Primary care physician: Sepideh Pires Consults: 09/18/20 Consult to Physician [CONS] Stat Comment: Consulting Provider: Benji Del Angel Reason For Exam: Physician to Consult Consult to Physician [CONS] Stat Comment: Consulting Provider: Rome Joe Reason For Exam: Physician to Consult 09/21/20 16:46 Consult to Physician [CONS] Routine Comment: Consulting Provider: Rishi Garcia Reason For Exam: Physician to Consult Discharge Meds Discharge Medications Home Medications citalopram 30 mg PO QAM 09/18/20 [History Confirmed 09/18/20 Last Taken Unknown] docusate sodium [DOK] 100 mg PO BID #60 cap 09/22/20 [Rx Last Taken Unknown] oxycodone-acetaminophen 1 tab PO Q4-6HP PRN #50 tab 09/22/20 [Rx Last Taken Unknown] ibuprofen 600 mg PO Q6HP PRN #30 tab 09/25/20 [Rx Last Taken Unknown] COURSE Hospital Course Hospital course: Patient was admitted on September 18, 2020 for chronic osteomyelitis of the left knee. Orthopedic surgeon Dr. Joe was consulted who performed a washout of the cell joint, as well as hardware and graft removal. Bone culture from another hospital showing Serr[place]. Infectious disease Dr. Castro was consulted and after rounds of multiple IV the antibiotics, she was eventually being treated with gentamicin and culture sensitivity report. Patient has reached clinical stability on September 25, 2020. She would be discharged home with outpatient infusions of the gentamicin, as well as PICC line insertions pending in single hospital. Follow-up appointment with Dr. Joe as well as Dr. Garcia were made for her. All questions were answered prior to patient being physically discharged. Discharge diagnosis: chronic osteomyelitis of the left knee Time Spent with Patient Time attestation: Total time spent providing and/or coordinating discharge services: Patient was admitted on September 18, 2020 for chronic osteomyelitis of the left knee. Orthopedic surgeon Dr. Jeo was consulted who performed a washout of the cell joint, as well as hardware and graft removal. Bone culture from another hospital showing [place]ia. Infectious disease Dr. Castro was consulted and after rounds of multiple IV the antibiotics, she was eventually being treated with gentamicin and culture sensitivity report. Patient has reached clinical stability on September 25, 2020. She would be discharged home with outpatient infusions of the gentamicin, as well as PICC line insertions pending in single hospital. Follow-up appointment with Dr. Joe as well as Dr. Garcia were made for her. All questions were answered prior to patient being physically discharged. EXAM Constitutional Vitals: Temp Pulse Resp BP Pulse Ox 36.3 C 77 16 92/58 99 09/25/20 07:34 09/25/20 07:34 09/25/20 07:34 09/25/20 07:34 09/25/20 07:34 General appearance: cooperative and no acute distress Head Head exam: Present atraumatic and normocephalic Eye Eye exam: Present EOMI and PERRL ENT ENT exam: Present mucous membranes moist, normal exam and normal external ear exam Neck Neck exam: Present normal inspection; Absent lymphadenopathy, tenderness and thyromegaly Respiratory Respiratory exam: Absent accessory muscle use, respiratory distress and wheezes Cardiovascular Cardiovascular exam: Present normal rate and rhythm; Absent JVD GI/Abdominal GI/Abdominal exam: Present normal bowel sounds and soft; Absent organomegaly and tenderness Extremities Exam Extremities exam: Present full ROM, normal capillary refill and normal inspection; Absent tenderness Additional comments: Left knee covered with surgical dressing Neurological Exam Neurological exam: Present alert, CN II-XII intact and oriented X3; Absent motor sensory deficit Psychiatric Psychiatric exam: Present normal affect and normal mood; Absent anxious and depressed Skin Skin exam: Present dry and intact Discharge Data Data Completed and Pending Labs on day of discharge: Labs from last 24 hours 09/25/20 09/24/20 09/24/20 01:40 12:28 09:08 POC Hct 41 POC Sodium 136 POC Potassium 3.8 POC Chloride 102 POC Total CO2 22 POC BUN 14 POC Creatinine 0.7 POC Glucose 158 H POC WB Ioniz Calcium 1.08 L Gentamicin Trough 0.8 H < 0.3 Preliminary micro results at discharge 09/20/20 10:16 Blood Culture - Preliminary Blood 09/20/20 10:05 Blood Culture - Preliminary Blood Discharge Plan Patient/Caregiver Discharge Instructions Activity: as per physical therapy and increase activity as tolerated Diet: Regular Diet Instructions: Oxycodone/Acetaminophen (By mouth), Laxative, Stool Softeners (By mouth), Gentamicin (By injection), How to Care for Your PICC (Peripherally Inserted Central Catheter) (DC), How to Flush Your PICC (Peripherally Inserted Central Catheter) (DC), Incision and Drainage (GEN) Activity Restrictions/Additional Instructions: PICC placement at [facility] on Monday at 3:00 pm, please register at 2:25 pm. Prescriptions: New oxycodone-acetaminophen 10-325 mg Tablet 1 tab PO Q4-6HP PRN (Reason: Per Pain Protocol) Qty: 50 RF: 0 docusate sodium [DOK] 100 mg Capsule 100 mg PO BID Qty: 60 RF: 0 ibuprofen 600 mg Tablet 600 mg PO Q6HP PRN (Reason: Pain/Fever > 101) Qty: 30 RF: 0 Continued citalopram 20 mg tablet 30 mg PO QAM RF: 0 Other Ambulatory Orders: Outpatient PICC Care (Daily) Location: None Selected Ordered By: Fransico Fish Outpatient PICC Care (Daily) Location: None Selected Ordered By: Rishi Garcia Physical Therapy at Discharge - General (Routine) Location: None Selected Ordered By: Rome Joe Follow Up Plan Follow up with: Rome Joe MD [Physician] - 10/02/20 10:40 am Sepideh Pires PA-C [Primary Care Provider] - (as needed.) Rishi Garcia MD [Physician] - 09/30/20 1:30 pm (Doctor would like to have this date changed to . Please call and reschedule this appointment.) Patient Disposition: Home, Self-Care Prognosis: Fair Rehab Potential: Good I certify that the patient requires SNF services: No Overall status at discharge: patient is progressing back to baseline Discharge Orders: Discharge Order (Routine); Ordered 09/25/20 Ordered By: Fransico Fish QUALITY VTE Deep Vein Thrombosis/Pulmonary Embolism Present on Admission: No
[2020-09-25] MEDS: ENOXAPARIN 40 MG/0.4 ML SYRINGE SQ SCH (09:01)
[2020-09-25] MEDS: DOCUSATE SODIUM 100 MG CAPSULE PO SCH (09:01)
[2020-09-25] MEDS: LIDOCAINE PATCH TOPICAL SCH (10:34)
== END 2020-09-25 10:28 | disposition home or self-care (01) | DRG 464 ==
LOC: ED 15:37 → MEDSUR 22:28
PROVIDERS: ADMIT Internal Medicine; ATTEND Internal Medicine